=== PATIENT | female | born 1940 | race Caucasian/White ===

== ENCOUNTER → 2016-12-09 | Outpatient (CLI) | payer OTHER ==
[2016-12-09 13:49] LABS: ABSOLUTE BASOPHILS # (AUTO) 0.1 10^3/uL (0.0-0.2); ABSOLUTE EOSINOPHILS # (AUTO) 0.2 10^3/uL (0.0-0.6); ABSOLUTE LYMPHOCYTES (AUTO) 1.3 10^3/uL (0.5-4.7); ABSOLUTE MONOCYTES (AUTO) 0.6 10^3/uL (0.1-1.4); ABSOLUTE NEUT (AUTO) 6.2 10^3/uL (1.7-8.2); BASOPHILS % (AUTO) 0.6 % (0-2); EOSINOPHILS % (AUTO) 2.6 % (0-6); HEMATOCRIT 41.4 % (36.0-47.0); HEMOGLOBIN 13.2 g/dL (12.0-15.5); HGB HCT DIFFERENCE -1.8; LYMPHOCYTES % (AUTO) 15.7 % (13-45); MEAN CORPUSCULAR HEMOGLOBIN 29.4 pg (27.0-33.4); MEAN CORPUSCULAR HGB CONC 31.8 g/dL (32.0-36.0); MEAN CORPUSCULAR VOLUME 92 fl (80-97); MONOCYTES % (AUTO) 6.7 % (3-13); RED BLOOD COUNT 4.49 10^6/uL (3.72-5.28); RED CELL DISTRIBUTION WIDTH 16.7 % (11.5-14.0); SEGMENTED NEUTROPHILS % (AUTO) 74.4 % (42-78); WHITE BLOOD COUNT 8.4 10^3/uL (4.0-10.5)
[2016-12-09 13:54] LABS: ALANINE AMINOTRANSFERASE 21 U/L (9-52); ALBUMIN 3.9 g/dL (3.5-5.0); ALKALINE PHOSPHATASE 71 U/L (38-126); ANION GAP 15 (5-19); ASPARTATE AMINO TRANSFERASE 17 U/L (14-36); BILIRUBIN,DIRECT 0.3 mg/dL (0.0-0.4); BILIRUBIN,TOTAL 0.6 mg/dL (0.2-1.3); BLOOD UREA NITROGEN 27 mg/dL (7-20); C-REACTIVE PROTEIN 22.2 mg/L (<10.0); CALCIUM 9.4 mg/dL (8.4-10.2); CARBON DIOXIDE 23 mmol/L (22-30); CHLORIDE 103 mmol/L (98-107); CREATININE RESULT 0.74 mg/dL (0.52-1.25); GLUCOSE 71 mg/dL (75-110); POTASSIUM 4.9 mmol/L (3.6-5.0); SODIUM 140.5 mmol/L (137-145); TOTAL PROTEIN 7.1 g/dL (6.3-8.2)
[2016-12-09 14:40] LABS: ERYTHROCYTE SEDIMENTATION RATE 29 mm/hr (0-30)
== END ==
LOC: OD 12:36
PROVIDERS: ATTEND Nurse Practitioner Family
DX: L97.522 Non-pressure chronic ulcer of other part of left foot with fat layer exposed (principal)
CPT/HCPCS: 36415; 80053; 83036; 85025; 85652; 86140

== ENCOUNTER → 2017-01-13 | Outpatient (CLI) | payer OTHER ==
[2017-01-13 13:09] LABS: ABSOLUTE EOSINOPHILS # (AUTO) 0.2 10^3/uL (0.0-0.6); ABSOLUTE MONOCYTES (AUTO) 0.7 10^3/uL (0.1-1.4); ABSOLUTE NEUT (AUTO) 6.2 10^3/uL (1.7-8.2); BASOPHILS % (AUTO) 0.5 % (0-2); EOSINOPHILS % (AUTO) 2.1 % (0-6); HEMATOCRIT 41.4 % (36.0-47.0); HEMOGLOBIN 13.3 g/dL (12.0-15.5); HGB HCT DIFFERENCE -1.5; LYMPHOCYTES % (AUTO) 21.6 % (13-45); MEAN CORPUSCULAR HEMOGLOBIN 29.1 pg (27.0-33.4); MEAN CORPUSCULAR HGB CONC 32.2 g/dL (32.0-36.0); MEAN CORPUSCULAR VOLUME 90 fl (80-97); MONOCYTES % (AUTO) 7.7 % (3-13); RED BLOOD COUNT 4.58 10^6/uL (3.72-5.28); RED CELL DISTRIBUTION WIDTH 15.9 % (11.5-14.0); SEGMENTED NEUTROPHILS % (AUTO) 68.1 % (42-78); WHITE BLOOD COUNT 9.1 10^3/uL (4.0-10.5)
[2017-01-13 13:30] LABS: ALANINE AMINOTRANSFERASE 23 U/L (9-52); ALBUMIN 4.1 g/dL (3.5-5.0); ALKALINE PHOSPHATASE 67 U/L (38-126); ANION GAP 9 (5-19); ASPARTATE AMINO TRANSFERASE 17 U/L (14-36); BILIRUBIN,DIRECT 0.3 mg/dL (0.0-0.4); BILIRUBIN,TOTAL 0.5 mg/dL (0.2-1.3); BLOOD UREA NITROGEN 26 mg/dL (7-20); CALCIUM 9.7 mg/dL (8.4-10.2); CARBON DIOXIDE 26 mmol/L (22-30); CHLORIDE 102 mmol/L (98-107); GLUCOSE 76 mg/dL (75-110); POTASSIUM 5.2 mmol/L (3.6-5.0); SODIUM 137.2 mmol/L (137-145); TOTAL PROTEIN 7.5 g/dL (6.3-8.2)
[2017-01-13 13:51] LABS: ERYTHROCYTE SEDIMENTATION RATE 36 mm/hr (0-30)
--- NOTE | 2017-01-13 14:01 | RADIOLOGY REPORT (SQ) ---
EXAM DESCRIPTION: FOOT LEFT COMPLETE COMPLETED DATE/TIME: 01/13/2017 1:01 pm REASON FOR STUDY: TYPE 2 DIABETES MELLITUS WITH FOOT ULCER E11.621 TYPE 2 DIABETES MELLITUS WITH FO OT ULCER COMPARISON: 12/09/2016 NUMBER OF VIEWS: Three views. TECHNIQUE: AP, lateral and oblique radiographic images acquired of the left foot. LIMITATIONS: None. FINDINGS: MINERALIZATION: Osteopenia. BONES: No acute fracture or dislocation. No worrisome bone lesions. No evidence of osteomyelitis. JOINTS: Mild degenerative joint changes are present in the 1st metatarsal-phalangeal joint in the 1st interphalangeal joint SOFT TISSUES: No soft tissue swelling. No foreign body. OTHER: No other significant finding. IMPRESSION: No osteomyelitis is seen. Findings as described. TECHNICAL DOCUMENTATION: JOB ID: [id number] [employer]- All Rights Reserved
== END ==
LOC: OD 12:17
PROVIDERS: ATTEND Surgery
DX: E11.621 Type 2 diabetes mellitus with foot ulcer (principal); L97.529 Non-pressure chronic ulcer of other part of left foot with unspecified severity
CPT/HCPCS: 36415; 80053; 83036; 85025; 85652

== ENCOUNTER 2017-08-21 14:15 | Inpatient (IN) | payer MEDICARE, OTHER ==
--- NOTE | 2017-08-21 15:22 | RADIOLOGY REPORT (SQ) ---
EXAM DESCRIPTION: CT HEAD WITHOUT COMPLETED DATE/TIME: 08/21/2017 3:14 pm REASON FOR STUDY: fall/head injury/severe arthritis COMPARISON: None. TECHNIQUE: Axial images acquired through the brain without intravenous contrast. Images reviewed wi th bone, brain and subdural windows. Images stored on PACS. All CT scanners at this facility use dose modulation, iterative reconstruction, and/or weight based d osing when appropriate to reduce radiation dose to as low as reasonably achievable (ALARA). [facility]: Dose Right [facility]: CareDose [facility]: Dose Right [facility]: Teradose 4D [facility]: [employer] RADIATION DOSE: mGy. LIMITATIONS: None. FINDINGS: VENTRICLES: Prominent. CEREBRUM: No masses. No hemorrhage. No midline shift. Areas of low density in the white matter mos t likely due to chronic micro-vascular ischemic change. No evidence for acute infarction. CEREBELLUM: No masses. No hemorrhage. No alteration of density. No evidence for acute infarction. EXTRAAXIAL SPACES: Mild age-related involutional change. No fluid collections. No masses. ORBITS AND GLOBE: No intra- or extraconal masses. Normal contour of globe without masses. CALVARIUM: No fracture. PARANASAL SINUSES: No fluid or mucosal thickening. SOFT TISSUES: No mass or hematoma. OTHER: No other significant finding. IMPRESSION: No acute findings. EVIDENCE OF ACUTE STROKE: NO. TECHNICAL DOCUMENTATION: JOB ID: [id number] Quality ID # [id number]: Final reports with documentation of one or more dose reduction techniques (e.g., Au tomated exposure control, adjustment of the mA and/or kV according to patient size, use of iterative reconstruction technique) 2010 [employer]- All Rights Reserved
--- NOTE | 2017-08-21 15:24 | RADIOLOGY REPORT (SQ) ---
EXAM DESCRIPTION: HIP LEFT AP/LATERAL COMPLETED DATE/TIME: 08/21/2017 3:14 pm REASON FOR STUDY: fall COMPARISON: None. NUMBER OF VIEWS: Two views. TECHNIQUE: AP pelvis and additional frog-leg view of the left hip. LIMITATIONS: None. FINDINGS: MINERALIZATION: Osteopenia. LEFT HIP: Minimally displaced left intertrochanteric femoral neck fracture. RIGHT HIP: Status post internal fixation. No acute osseous abnormality. No hardware complication. PUBIS AND ISCHIUM: No fracture. PELVIS: No fracture. SACRUM: No fracture or dislocation. No worrisome bone lesions. LOWER LUMBAR SPINE: No fracture or dislocation. No worrisome bone lesions. No significant disc disea se. SOFT TISSUES: No findings. OTHER: No other significant finding. IMPRESSION: LEFT INTERTROCHANTERIC FEMORAL NECK FRACTURE. STATUS POST INTERNAL FIXATION RIGHT HIP WITHOUT COMPLICATION. TECHNICAL DOCUMENTATION: JOB ID: [id number] [employer]- All Rights Reserved
--- NOTE | 2017-08-21 15:28 | RADIOLOGY REPORT (SQ) ---
EXAM DESCRIPTION: CT CERVICAL SPINE WITHOUT COMPLETED DATE/TIME: 08/21/2017 3:19 pm REASON FOR STUDY: fall/head injury/severe arthritis COMPARISON: None. TECHNIQUE: Axial images acquired through the cervical spine without intravenous contrast. Images re viewed with lung, soft tissue and bone windows. Reconstructed coronal and sagittal MPR images review ed. Images stored on PACS. All CT scanners at this facility use dose modulation, iterative reconstruction, and/or weight based d osing when appropriate to reduce radiation dose to as low as reasonably achievable (ALARA). [facility]: Dose Right [facility]: CareDose [facility]: Dose Right [facility]: Teradose 4D [facility]: [employer] RADIATION DOSE: CT Rad equipment meets quality standard of care and radiation dose reduction techniq ues were employed. CTDIvol: 17.5 mGy. DLP: 314 mGy-cm. mGy. LIMITATIONS: None. FINDINGS: ALIGNMENT: Grade 1 anterolisthesis C4 relative to C5. MINERALIZATION: Normal. VERTEBRAL BODIES: No fractures or dislocation. DISCS: Multilevel disc space narrowing with osteophytes. FACETS, LATERAL MASSES, POSTERIOR ELEMENTS: Facet arthropathy. No fractures. No dislocation. No ac [place] findings. HARDWARE: None in the spine. VISUALIZED RIBS: No fractures. LUNG APICES AND SOFT TISSUES: No significant or acute findings. OTHER: No other significant finding. IMPRESSION: CHRONIC DEGENERATIVE CHANGES. NO ACUTE FINDINGS. TECHNICAL DOCUMENTATION: JOB ID: [id number] Quality ID # [id number]: Final reports with documentation of one or more dose reduction techniques (e.g., Au tomated exposure control, adjustment of the mA and/or kV according to patient size, use of iterative reconstruction technique) 2010 [employer]- All Rights Reserved
--- NOTE | 2017-08-21 15:59 | ER Document Report ---
ED General - General Chief Complaint: Fall Injury Stated Complaint: FALL/LEFT HIP PAIN Time Seen by Provider: 08/21/17 14:36 TRAVEL OUTSIDE OF THE [place] IN LAST 30 DAYS: No - HPI Patient complains to provider of: Fall Onset: Just prior to arrival Onset/Duration: Sudden Associated symptoms: None Similar symptoms previously: Yes Recently seen / treated by doctor: Yes - Hip fracture in 2015 Notes: She was at home alone when she tripped and fell hitting the back of her head. She states she could not get up but she did have a forward pocket so she called 9 1. She is complaining currently of left hip pain. She denies LOC she is on anticoagulation for strokes in the past - Related Data Allergies/Adverse Reactions: No Known Allergies Allergy (Unverified 10/13/14 11:42) Past Medical History - General Information source: Patient, Relative - Social History Smoking Status: Never Smoker Chew tobacco use (# tins/day): No Drug Abuse: None Lives with: Alone Family History: Reviewed & Not Pertinent Patient has suicidal ideation: No Patient has homicidal ideation: No - Past Medical History Cardiac Medical History: Reports: Hx Hypertension - CONTROLLED/medicated Denies: Hx Heart Attack Pulmonary Medical History: Denies: Hx Asthma Neurological Medical History: Denies: Hx Cerebrovascular Accident, Hx Seizures Endocrine Medical History: Reports: Hx Diabetes Mellitus Type 2 Renal/ Medical History: Reports: None. Denies: Hx Peritoneal Dialysis Malignancy Medical History: Reports: None GI Medical History: Reports: None. Denies: Hx Hepatitis, Hx Hiatal Hernia, Hx Ulcer Musculoskeltal Medical History: Reports Hx Arthritis - Severe rheumatoid arthritis Skin Medical History: Reports None Psychiatric Medical History: Reports: None, Hx Depression Other: Fall in 2014 with right hip fracture and repair Infectious Medical History: Denies: Hx Hepatitis Past Surgical History: Reports: Hx Orthopedic Surgery - right knee replacement. Denies: Hx Hysterectomy, Hx Mastectomy, Hx Open Heart Surgery, Hx Pacemaker - Immunizations Hx Diphtheria, Pertussis, Tetanus Vaccination: No Review of Systems - Review of Systems Constitutional: No symptoms reported EENT: No symptoms reported Cardiovascular: No symptoms reported Respiratory: No symptoms reported Gastrointestinal: No symptoms reported Genitourinary: No symptoms reported Female Genitourinary: No symptoms reported Musculoskeletal: Joint pain Skin: No symptoms reported Hematologic/Lymphatic: No symptoms reported Neurological/Psychological: No symptoms reported Physical Exam - Vital signs Vitals: Resp 16 08/21/17 14:20 - Notes Notes: PHYSICAL EXAMINATION: GENERAL: Well-appearing, well-nourished mild distress secondary to left hip pain. HEAD: Patient has scalp hematoma to right parietal area. EYES: Pupils equal round and reactive to light, extraocular movements intact, conjunctiva are normal. ENT: Nares patent, oropharynx clear without exudates. Moist mucous membranes. NECK: Normal range of motion, supple without lymphadenopathy LUNGS: Breath sounds clear to auscultation bilaterally and equal. No wheezes rales or rhonchi. HEART: Regular rate and rhythm without murmurs ABDOMEN: Soft, nontender, nondistended abdomen. No guarding, no rebound. No masses appreciated. Female : deferred Musculoskeletal: Left hip is swollen tender with marked deformity. NEUROLOGICAL: Cranial nerves grossly intact. Normal speech. Normal sensory. PSYCH: Normal mood, normal affect. SKIN: Warm, Dry, normal turgor, no rashes or lesions noted. Course - Re-evaluation Re-evalutation: 08/21/17 16:06 I did talk to Dr. Jensen as Dr. Good Albarado greater than patient's right hip and they are in the same group. Dr. Jensen I decided to admit the patient to the hospitalist group and he will consult. Patient continues to refuse pain medication. I did offer when she initially arrived and currently and she still does not want any pain meds. Blood work, chest x-ray, EKG are all ordered and are being done. 08/21/17 17:[address] Valdes and pt. will be admitted. - Vital Signs Vital signs: Temp Pulse Resp BP Pulse Ox 98.5 F 77 18 163/56 H 96 08/21/17 14:37 08/21/17 14:37 08/21/17 14:37 08/21/17 14:37 08/21/17 14:37 - Laboratory Result Diagrams: 08/21/17 16:46 08/21/17 16:46 Laboratory results interpreted by me: 08/21/17 16:46 RDW 14.7 H Seg Neutrophils % 81.2 H Lymphocytes % 10.5 L Absolute Neutrophils 8.4 H - Diagnostic Test Radiology reviewed: Image reviewed, Reports reviewed Radiology results interpreted by me: 08/21/17 19:33 left Intratrochanteric hip fracture 08/21/17 19:34 CT of the head and C-spine were without any acute findings. Chest x-ray also did not show any acute findings. - EKG Interpretation by Me EKG shows normal: Sinus rhythm - 70 Rate: Normal - Nonspecific ST-T wave changes When compared to previous EKG there are: No significant change Discharge - Discharge Clinical Impression: Intertrochanteric fracture of left hip Qualifiers: Encounter type: initial encounter Fracture type: closed Fracture alignment: nondisplaced Qualified Code(s): S72.145A - Nondisplaced intertrochanteric fracture of left femur, initial encounter for closed fracture Condition: Stable Disposition: ADMITTED INPATIENT Admitting Provider: Hospitalist - Dr. Valdes Unit Admitted: Surgical Floor
--- NOTE | 2017-08-21 16:39 | RADIOLOGY REPORT (SQ) ---
EXAM DESCRIPTION: CHEST SINGLE VIEW COMPLETED DATE/TIME: 08/21/2017 4:17 pm REASON FOR STUDY: preop COMPARISON: 10/13/2014 EXAM PARAMETERS: NUMBER OF VIEWS: One view. TECHNIQUE: Single frontal radiographic view of the chest acquired. RADIATION DOSE: NA LIMITATIONS: None. FINDINGS: LUNGS AND PLEURA: No new opacities, masses or pneumothorax. No pleural effusion. MEDIASTINUM AND HILAR STRUCTURES: No masses. Contour normal. HEART AND VASCULAR STRUCTURES: Heart stable in size. Normal vasculature. BONES: No acute findings. HARDWARE: None in the chest. OTHER: No other significant finding. IMPRESSION: NO ACUTE RADIOGRAPHIC FINDING IN THE CHEST. NO SIGNIFICANT CHANGE FROM PRIOR STUDY. TECHNICAL DOCUMENTATION: JOB ID: [id number] [employer]- All Rights Reserved
[2017-08-21] MEDS ORDERED: MORPHINE SULFATE 10 MG/ML INJ IV ONE (16:53)
[2017-08-21 16:55] LABS: ABSOLUTE EOSINOPHILS # (AUTO) 0.1 10^3/uL (0.0-0.6); ABSOLUTE LYMPHOCYTES (AUTO) 1.1 10^3/uL (0.5-4.7); ABSOLUTE MONOCYTES (AUTO) 0.7 10^3/uL (0.1-1.4); ABSOLUTE NEUT (AUTO) 8.4 10^3/uL (1.7-8.2); BASOPHILS % (AUTO) 0.5 % (0-2); EOSINOPHILS % (AUTO) 1.4 % (0-6); HEMATOCRIT 39.9 % (36.0-47.0); HEMOGLOBIN 13.5 g/dL (12.0-15.5); LYMPHOCYTES % (AUTO) 10.5 % (13-45); MEAN CORPUSCULAR HEMOGLOBIN 30.7 pg (27.0-33.4); MEAN CORPUSCULAR HGB CONC 33.8 g/dL (32.0-36.0); MEAN CORPUSCULAR VOLUME 91 fl (80-97); MONOCYTES % (AUTO) 6.4 % (3-13); PLATELET COUNT 227 10^3/uL (150-450); RED BLOOD COUNT 4.39 10^6/uL (3.72-5.28); RED CELL DISTRIBUTION WIDTH 14.7 % (11.5-14.0); SEGMENTED NEUTROPHILS % (AUTO) 81.2 % (42-78); TOTAL CELLS COUNTED % (AUTO) 100 %; WHITE BLOOD COUNT 10.4 10^3/uL (4.0-10.5)
[2017-08-21 17:03] LABS: INTERNATIONAL RATION (INR) 0.93; PROTHROMBIN TIME 13.1 SEC (11.4-15.4)
[2017-08-21 17:04] LABS: PARTIAL THROMBOPLASTIN TIME 30.6 SEC (23.5-35.8)
--- NOTE | 2017-08-21 17:20 | EKG REPORT ---
SEVERITY:- ABNORMAL ECG - SINUS RHYTHM ABNORMAL T, CONSIDER ISCHEMIA, LATERAL LEADS : Confirmed by: Abdelrahman Cantu 21-Aug-2017 17:18:58
[2017-08-21 17:22] LABS: ALANINE AMINOTRANSFERASE 25 U/L (9-52); ALBUMIN 4.1 g/dL (3.5-5.0); ALKALINE PHOSPHATASE 69 U/L (38-126); ANION GAP 12 (5-19); ASPARTATE AMINO TRANSFERASE 19 U/L (14-36); BILIRUBIN,DIRECT 0.2 mg/dL (0.0-0.4); BILIRUBIN,TOTAL 0.4 mg/dL (0.2-1.3); BLOOD UREA NITROGEN 18 mg/dL (7-20); CALCIUM 9.8 mg/dL (8.4-10.2); CARBON DIOXIDE 24 mmol/L (22-30); CHLORIDE 104 mmol/L (98-107); GLUCOSE 83 mg/dL (75-110); POTASSIUM 4.4 mmol/L (3.6-5.0); SODIUM 139.8 mmol/L (137-145); TOTAL PROTEIN 6.7 g/dL (6.3-8.2)
[2017-08-21] MEDS ORDERED: OXYCODONE-ACETAMINOPHEN 5-325 MG TABLET PO PRN (17:33)
[2017-08-21] MEDS ORDERED: ACETAMINOPHEN 325 MG TABLET PO PRN (17:33)
[2017-08-21] MEDS ORDERED: DEXTROSE 40% GEL 15 GM TUBE PO PRN ×2 (18:28)
[2017-08-21] MEDS ORDERED: HYDRALAZINE HCL INJ/PF 20 MG/1 ML SDV IV PRN (18:28)
[2017-08-21] MEDS ORDERED: GLUCAGON,HUMAN RECOMB 1 MG INJ IM PRN (18:28)
[2017-08-21] MEDS ORDERED: DEXTROSE 50%-WATER 25 GM/50 ML DISP.SYRIN IV PRN ×2 (18:28)
--- NOTE | 2017-08-21 18:41 | PDOC H&P ---
History of Present Illness Admission Date/PCP: 08/21/17 17:54 Patient complains of: Pain to left hip tonight History of Present Illness: WENDI ESCOBAR is a 76 year old female arrived to ED via rescue squad complaining of left hip pain. Patient states that she was in her kitchen when she fell. She denies any loss of consciousness, weakness or dizziness. She suffers from rheumatoid arthritis and takes methotrexate on a regular basis. Patient denies history of stroke or being on any anticoagulants. She does admit history of diabetes. On evaluation in emergency room x-ray was significant for a left intertrochanteric femoral neck fracture. ED physician contacted Dr. Deal who recommended for her to contact the hospitalist service for admission. Past Medical History Cardiac Medical History: Reports: Hypertension - CONTROLLED/medicated Denies: Myocardial Infarction Pulmonary Medical History: Denies: Asthma EENT Medical History: Reports: None Neurological Medical History: Denies: Hemorrhagic CVA, Ischemic CVA, Seizures Endocrine Medical History: Reports: Diabetes Mellitus Type 2 Renal/ Medical History: Reports: None Malignancy Medical History: Reports: None GI Medical History: Reports: None Denies: Hepatitis, Hiatal Hernia Musculoskeltal Medical History: Reports: Arthritis - Severe rheumatoid arthritis Skin Medical History: Reports: None Psychiatric Medical History: Reports: None, Depression Traumatic Medical History: Reports: None Hematology: Reports: 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 Denies: Sickle Cell Disease Infectious Medical History: Reports: None Past Surgical History Past Surgical History: Reports: Orthopedic Surgery - right knee replacement Denies: Amputation, Hysterectomy, Mastectomy, Pacemaker Social History Lives with: Alone Smoking Status: Never Smoker Frequency of Alcohol Use: None Hx Recreational Drug Use: No Drugs: None Hx Prescription Drug Abuse: No - Advance Directive Resuscitation Status: Full Code Family History Family History: Hypertension, Malignancy Parental Family History Reviewed: Yes Children Family History Reviewed: Yes Sibling(s) Family History Reviewed.: Yes Medication/Allergy Home Medications: Citalopram Hydrobromide [Celexa 20 mg Tablet] 20 mg PO DAILY 12/28/11 Folic Acid 1 mg PO DAILY 12/28/11 Lisinopril [Prinivil 10 mg Tablet] 10 mg PO DAILY 12/28/11 Metformin HCl [Glucophage 500 mg Tablet] 500 mg PO DAILY 12/28/11 Methotrexate Sodium [Methotrexate] 4 tab PO .QWK 12/28/11 Multivitamin [Vitamin A Day] 1 each PO DAILY 12/28/11 Gabapentin [Neurontin 100 mg Capsule] 2 tab PO Q12 12/25/13 Docusate Sodium [Colace 100 mg Capsule] 100 mg PO BID #60 capsule 10/17/14 Oxycodone HCl [Oxy-Ir 5 mg Tablet] 5 mg PO Q4HP PRN #30 tablet 10/17/14 Polyethylene Glycol 3350 [Miralax Powder 17 gm/Packet] 17 gm PO DAILY #30 powd.pack 10/17/14 Rivaroxaban [Xarelto 10 mg Tablet] 10 mg PO QHS #30 tablet 10/17/14 Allergies/Adverse Reactions: No Known Allergies Allergy (Unverified 10/13/14 11:42) Review of Systems Constitutional: ABSENT: chills, fatigue, headache(s), weakness Eyes: ABSENT: visual disturbances Ears: ABSENT: hearing changes Nose, Mouth, and Throat: ABSENT: mouth pain, sore throat Cardiovascular: ABSENT: chest pain, dyspnea on exertion, edema, palpitations Respiratory: ABSENT: dyspnea Gastrointestinal: ABSENT: abdominal pain, nausea, vomiting Genitourinary: ABSENT: difficulty urinating, dysuria Musculoskeletal: PRESENT: other - left hip pain Neurological: ABSENT: dizziness, weakness Psychiatric: PRESENT: depression Endocrine: ABSENT: polydipsia, polyphagia Hematologic/Lymphatic: ABSENT: lymphadenopathy Physical Exam Vital Signs: Temp Pulse Resp BP Pulse Ox 98.5 F 77 18 163/56 H 96 08/21/17 14:37 08/21/17 14:37 08/21/17 14:37 08/21/17 14:37 08/21/17 14:37 General appearance: PRESENT: cooperative, mild distress, well-developed, well- nourished Head exam: PRESENT: atraumatic, normocephalic Eye exam: PRESENT: conjunctiva pink, EOMI, PERRLA Ear exam: PRESENT: normal external ear exam Mouth exam: PRESENT: moist, neck supple Neck exam: PRESENT: full ROM, tenderness. ABSENT: JVD, lymphadenopathy, thyromegaly Respiratory exam: PRESENT: clear to auscultation gertrudis Cardiovascular exam: PRESENT: RRR. ABSENT: diastolic murmur, systolic murmur Vascular exam: PRESENT: normal capillary refill GI/Abdominal exam: PRESENT: guarding, normal bowel sounds, soft. ABSENT: tenderness Extremities exam: PRESENT: joint swelling, +1 edema Neurological exam: PRESENT: alert, awake, oriented to person, oriented to place , oriented to time Psychiatric exam: PRESENT: appropriate affect, normal mood Skin exam: PRESENT: intact, normal color Results Impressions: Hip X-Ray 08/21/17 14:22 IMPRESSION: LEFT INTERTROCHANTERIC FEMORAL NECK FRACTURE. STATUS POST INTERNAL FIXATION RIGHT HIP WITHOUT COMPLICATION. Cervical Spine CT 08/21/17 14:40 IMPRESSION: CHRONIC DEGENERATIVE CHANGES. NO ACUTE FINDINGS. Head CT 08/21/17 14:40 IMPRESSION: No acute findings. EVIDENCE OF ACUTE STROKE: NO. Chest X-Ray 08/21/17 15:48 IMPRESSION: NO ACUTE RADIOGRAPHIC FINDING IN THE CHEST. NO SIGNIFICANT CHANGE FROM PRIOR STUDY. Assessment & Plan - Diagnosis (1) Diabetes Qualifiers: Diabetes mellitus type: type 2 Diabetes mellitus complication status: with neurologic complications Diabetes mellitus complication detail: with unspecified neuropathy Diabetes mellitus prison insulin use: without terminal makeup operator use Qualified Code(s): E11.40 - Type 2 diabetes mellitus with diabetic neuropathy, unspecified Is this a current diagnosis for this admission?: Yes Plan: To order basic glucose before meals and at bedtime and place on Humalog sliding scale (2) Rheumatoid arthritis Qualifiers: Rheumatoid arthritis location: hand Rheumatoid factor presence: unspecified presence Laterality: bilateral Qualified Code(s): M06.9 - Rheumatoid arthritis, unspecified Is this a current diagnosis for this admission?: Yes Plan: Will stop methotrexate as it may impair healing. Consider watching for flare of her rheumatoid arthritis. (3) HTN (hypertension) Qualifiers: Hypertension type: essential hypertension Qualified Code(s): I10 - Essential (primary) hypertension Is this a current diagnosis for this admission?: Yes Plan: According to the chart patient does have history of hypertension at the present time and likely is on control because of pain. Will order hydralazine IV for systolic blood pressure higher or equal to 160 or diastolic blood pressure higher or equal to 110 (4) Intertrochanteric fracture of left hip Qualifiers: Encounter type: initial encounter Fracture type: closed Fracture alignment: nondisplaced Qualified Code(s): S72.145A - Nondisplaced intertrochanteric fracture of left femur, initial encounter for closed fracture Is this a current diagnosis for this admission?: Yes Plan: Major concern is that patient is on chronic use of methotrexate therefore will impair healing. As this was an acute episode she will benefit from surgical repair. Patient is high risk for surgery but the pros outweigh the cons (5) Immunosuppressed status Is this a current diagnosis for this admission?: Yes Plan: Patient getting methotrexate chronically for rheumatoid arthritis rendering patient immunosuppressant at high risk for infection and poor healing - Time Time Spent: 50 to 70 Minutes Medications reviewed and adjusted accordingly: Yes Anticipated discharge: Acute Rehab Within: within 72 hours - Inpatient Certification Based on my medical assessment, after consideration of the patient's comorbidities, presenting symptoms, or acuity I expect that the services needed warrant INPATIENT care.: Yes I certify that my determination is in accordance with my understanding of Medicare's requirements for reasonable and necessary INPATIENT services [42 CFR 412.3e].: Yes Medical Necessity: Need for Pain Control, Need for Surgery
[2017-08-21] MEDS: NORMAL SALINE 1000 ML 1,000 ML IV PRN (18:55)
[2017-08-22] MEDS: MORPHINE SULFATE 10 MG/ML INJ IV PRN (06:07)
[2017-08-22 06:23] LABS: ABSOLUTE EOSINOPHILS # (AUTO) 0.3 10^3/uL (0.0-0.6); ABSOLUTE LYMPHOCYTES (AUTO) 1.1 10^3/uL (0.5-4.7); ABSOLUTE MONOCYTES (AUTO) 0.6 10^3/uL (0.1-1.4); ABSOLUTE NEUT (AUTO) 5.4 10^3/uL (1.7-8.2); BASOPHILS % (AUTO) 0.6 % (0-2); EOSINOPHILS % (AUTO) 3.6 % (0-6); HEMOGLOBIN 11.9 g/dL (12.0-15.5); LYMPHOCYTES % (AUTO) 15.5 % (13-45); MEAN CORPUSCULAR HEMOGLOBIN 30.5 pg (27.0-33.4); MEAN CORPUSCULAR HGB CONC 33.9 g/dL (32.0-36.0); MEAN CORPUSCULAR VOLUME 90 fl (80-97); MONOCYTES % (AUTO) 7.8 % (3-13); PLATELET COUNT 191 10^3/uL (150-450); RED CELL DISTRIBUTION WIDTH 14.5 % (11.5-14.0); SEGMENTED NEUTROPHILS % (AUTO) 72.5 % (42-78); TOTAL CELLS COUNTED % (AUTO) 100 %; WHITE BLOOD COUNT 7.4 10^3/uL (4.0-10.5)
[2017-08-22 06:36] LABS: ANION GAP 9 (5-19); BLOOD UREA NITROGEN 16 mg/dL (7-20); CALCIUM 8.8 mg/dL (8.4-10.2); CARBON DIOXIDE 24 mmol/L (22-30); CHLORIDE 105 mmol/L (98-107); GLUCOSE 82 mg/dL (75-110); MAGNESIUM 1.6 mg/dL (1.6-2.3); POTASSIUM 4.1 mmol/L (3.6-5.0); SODIUM 137.8 mmol/L (137-145)
--- NOTE | 2017-08-22 06:50 | PDOC CONSULTATION ---
Consultation Consult Date: 08/22/17 Consult reason:: Left hip fracture History of Present Illness Admission Date/PCP: 08/21/17 17:54 History of Present Illness: The patient is a 76-year-old white female with multiple comorbidities who fell at home and sustained a left hip injury. The patient was unable to walk. She is largely a household ambulator at this point. She was brought to the emergency room where a left intratrochanteric femur fracture was identified. Orthopedics is consulted for fracture management. Past Medical History Cardiac Medical History: Reports: Hypertension - CONTROLLED/medicated Denies: Myocardial Infarction Pulmonary Medical History: Denies: Asthma EENT Medical History: Reports: None Neurological Medical History: Denies: Hemorrhagic CVA, Ischemic CVA, Seizures Endocrine Medical History: Reports: Diabetes Mellitus Type 2 Renal/ Medical History: Reports: None Malignancy Medical History: Reports: None GI Medical History: Reports: None Denies: Hepatitis, Hiatal Hernia Musculoskeltal Medical History: Reports: Arthritis - Severe rheumatoid arthritis Skin Medical History: Reports: None Psychiatric Medical History: Reports: None, Depression Traumatic Medical History: Reports: None Hematology: Reports: 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 Denies: Sickle Cell Disease Infectious Medical History: Reports: None Past Surgical History Past Surgical History: Reports: Orthopedic Surgery - right knee replacement, open reduction internal fixation of right hip fract Denies: Amputation, Hysterectomy, Mastectomy, Pacemaker Social History Lives with: Alone Smoking Status: Never Smoker Frequency of Alcohol Use: None Hx Recreational Drug Use: No Drugs: None Hx Prescription Drug Abuse: No - Advance Directive Resuscitation Status: Full Code Family History Family History: Reviewed & Not Pertinent Parental Family History Reviewed: No Children Family History Reviewed: No Sibling(s) Family History Reviewed.: No Medication/Allergy Allergies/Adverse Reactions: No Known Allergies Allergy (Unverified 10/13/14 11:42) Review of Systems All systems: as per H Physical Exam Vital Signs: Temp Pulse Resp BP Pulse Ox 36.9 C 77 18 114/81 95 08/21/17 14:37 08/21/17 14:37 08/22/17 02:09 08/22/17 02:09 08/22/17 02:09 Intake & Output 08/20/17 08/21/17 08/22/17 06:59 06:59 06:59 Weight 68.039 kg Physical Exam: Patient is an elderly white female lying on emergency room gurripley. She is in minimal distress. She is alert oriented and conversant. General appearance: PRESENT: no acute distress Head exam: PRESENT: normocephalic Respiratory exam: PRESENT: unlabored Cardiovascular exam: PRESENT: RRR Pulses: PRESENT: +1 pedal pulses bilateral Vascular exam: PRESENT: normal capillary refill GI/Abdominal exam: PRESENT: soft Rectal exam: PRESENT: deferred Extremities exam: PRESENT: other - Left lower extremity shortened and externally rotated. Distal neurovascular examination is intact. Neurological exam: PRESENT: alert, awake, oriented to person, oriented to place , oriented to time, oriented to situation. ABSENT: motor sensory deficit Psychiatric exam: PRESENT: appropriate affect, normal mood. ABSENT: homicidal ideation, suicidal ideation Skin exam: PRESENT: dry, intact, warm. ABSENT: cyanosis, rash Results Laboratory Results: 08/22/17 06:06 08/22/17 06:06 08/22/17 08/22/17 06:06 06:06 WBC 7.4 RBC 3.90 Hgb 11.9 L Hct 35.0 L MCV 90 MCH 30.5 MCHC 33.9 RDW 14.5 H Plt Count 191 Seg Neutrophils % 72.5 Lymphocytes % 15.5 Monocytes % 7.8 Eosinophils % 3.6 Basophils % 0.6 Absolute Neutrophils 5.4 Absolute Lymphocytes 1.1 Absolute Monocytes 0.6 Absolute Eosinophils 0.3 Absolute Basophils 0.0 Sodium 137.8 Potassium 4.1 Chloride 105 Carbon Dioxide 24 Anion Gap 9 BUN 16 Creatinine 0.62 Est GFR ( Amer) > 60 Est GFR (Non-Af Amer) > 60 Glucose 82 Calcium 8.8 Magnesium 1.6 Impressions: Hip X-Ray 08/21/17 14:22 IMPRESSION: LEFT INTERTROCHANTERIC FEMORAL NECK FRACTURE. STATUS POST INTERNAL FIXATION RIGHT HIP WITHOUT COMPLICATION. Cervical Spine CT 08/21/17 14:40 IMPRESSION: CHRONIC DEGENERATIVE CHANGES. NO ACUTE FINDINGS. Head CT 08/21/17 14:40 IMPRESSION: No acute findings. EVIDENCE OF ACUTE STROKE: NO. Chest X-Ray 08/21/17 15:48 IMPRESSION: NO ACUTE RADIOGRAPHIC FINDING IN THE CHEST. NO SIGNIFICANT CHANGE FROM PRIOR STUDY. Status: Imported from PACS Assessment & Plan - Diagnosis (1) Intertrochanteric fracture of left hip Qualifiers: Encounter type: initial encounter Fracture type: closed Fracture alignment: nondisplaced Qualified Code(s): S72.145A - Nondisplaced intertrochanteric fracture of left femur, initial encounter for closed fracture Is this a current diagnosis for this admission?: Yes Plan: 76-year-old white female with multiple comorbidities now with a left intratrochanteric femur fracture. Patient will be best served with an open reduction internal fixation under spinal anesthetic which will involve approximately 30 minutes and 100 cc blood loss. Tentative plan to do this tomorrow pending or availability and medical clearance. - Time Time Spent: 50 to 70 Minutes Anticipated discharge: SNF Within: within 72 hours
[2017-08-22] MEDS: OXYCODONE-ACETAMINOPHEN 5-325 MG TABLET PO PRN ×2 (08:51→20:44)
[2017-08-22] MEDS: NORMAL SALINE 1000 ML 1,000 ML IV PRN ×2 (08:52→20:43)
[2017-08-22] MEDS ORDERED: ZOLPIDEM TARTRATE 5 MG TABLET PO PRN (10:59)
--- NOTE | 2017-08-22 12:54 | PDOC PROGRESS REPORT ---
Subjective Progress Note for:: 08/22/17 Subjective:: Patient refers that pain is better with meds. Review of systems All organ systems evaluated and negative except in subjective All laboratories and significant laboratories had been reviewed. Reason For Visit: LEFT HIP FRACTURE,CHRONIC ANTICOAGULATION Physical Exam Vital Signs: Temp Pulse Resp BP Pulse Ox 98.5 F 77 18 114/81 95 08/21/17 14:37 08/21/17 14:37 08/22/17 02:09 08/22/17 02:09 08/22/17 02:09 Intake & Output 08/21/17 08/22/17 08/23/17 06:59 06:59 06:59 Weight 68.039 kg General appearance: PRESENT: no acute distress, cooperative, well-developed, well-nourished Head exam: PRESENT: atraumatic, normocephalic Eye exam: PRESENT: conjunctiva pink, EOMI, PERRLA Ear exam: PRESENT: normal external ear exam, TM's normal bilaterally Mouth exam: PRESENT: moist, neck supple Neck exam: PRESENT: full ROM, tenderness. ABSENT: JVD, lymphadenopathy, thyromegaly Respiratory exam: PRESENT: clear to auscultation gertrudis Cardiovascular exam: PRESENT: RRR. ABSENT: diastolic murmur, systolic murmur Vascular exam: PRESENT: normal capillary refill GI/Abdominal exam: PRESENT: normal bowel sounds, soft. ABSENT: guarding, tenderness Extremities exam: PRESENT: joint swelling, pedal edema, other - ulnar deviation of fingers in hands Musculoskeletal exam: PRESENT: full ROM Neurological exam: PRESENT: alert, oriented to person, oriented to place, oriented to time Psychiatric exam: PRESENT: appropriate affect, normal mood Skin exam: PRESENT: intact, normal color Results Laboratory Results: 08/22/17 06:06 08/22/17 06:06 08/22/17 08/22/17 06:06 06:06 WBC 7.4 RBC 3.90 Hgb 11.9 L Hct 35.0 L MCV 90 MCH 30.5 MCHC 33.9 RDW 14.5 H Plt Count 191 Seg Neutrophils % 72.5 Lymphocytes % 15.5 Monocytes % 7.8 Eosinophils % 3.6 Basophils % 0.6 Absolute Neutrophils 5.4 Absolute Lymphocytes 1.1 Absolute Monocytes 0.6 Absolute Eosinophils 0.3 Absolute Basophils 0.0 Sodium 137.8 Potassium 4.1 Chloride 105 Carbon Dioxide 24 Anion Gap 9 BUN 16 Creatinine 0.62 Est GFR ( Amer) > 60 Est GFR (Non-Af Amer) > 60 Glucose 82 Calcium 8.8 Magnesium 1.6 Impressions: Hip X-Ray 08/21/17 14:22 IMPRESSION: LEFT INTERTROCHANTERIC FEMORAL NECK FRACTURE. STATUS POST INTERNAL FIXATION RIGHT HIP WITHOUT COMPLICATION. Cervical Spine CT 08/21/17 14:40 IMPRESSION: CHRONIC DEGENERATIVE CHANGES. NO ACUTE FINDINGS. Head CT 08/21/17 14:40 IMPRESSION: No acute findings. EVIDENCE OF ACUTE STROKE: NO. Chest X-Ray 08/21/17 15:48 IMPRESSION: NO ACUTE RADIOGRAPHIC FINDING IN THE CHEST. NO SIGNIFICANT CHANGE FROM PRIOR STUDY. Assessment & Plan - Diagnosis (1) Diabetes Qualifiers: Diabetes mellitus type: type 2 Diabetes mellitus complication status: with neurologic complications Diabetes mellitus complication detail: with unspecified neuropathy Diabetes mellitus stablehand insulin use: without custodial use Qualified Code(s): E11.40 - Type 2 diabetes mellitus with diabetic neuropathy, unspecified Is this a current diagnosis for this admission?: Yes Plan: Continue checking glucose before meals and at bedtime and Humalog sliding scale (2) Rheumatoid arthritis Qualifiers: Rheumatoid arthritis location: hand Rheumatoid factor presence: unspecified presence Laterality: bilateral Qualified Code(s): M06.9 - Rheumatoid arthritis, unspecified Is this a current diagnosis for this admission?: Yes Plan: Will stop methotrexate as it may impair healing. Consider watching for flare of her rheumatoid arthritis. (3) HTN (hypertension) Qualifiers: Hypertension type: essential hypertension Qualified Code(s): I10 - Essential (primary) hypertension Is this a current diagnosis for this admission?: Yes Plan: Improved with pain management (4) Intertrochanteric fracture of left hip Qualifiers: Encounter type: initial encounter Fracture type: closed Fracture alignment: nondisplaced Qualified Code(s): S72.145A - Nondisplaced intertrochanteric fracture of left femur, initial encounter for closed fracture Is this a current diagnosis for this admission?: Yes Plan: Major concern is that patient is on chronic use of methotrexate therefore will impair healing. Under usual circumstances for planned surgery is reasonable to wait 6 weeks to clear methotrexate from the body. However since this is an acute episode she will benefit from surgical repair. Patient is high risk for surgery but the pros outweigh the cons. To consult cardiology for preop clearance (5) Immunosuppressed status Is this a current diagnosis for this admission?: Yes Plan: Patient getting methotrexate chronically for rheumatoid arthritis rendering patient immunosuppressant at high risk for infection and poor healing - Time Time Spent with patient: 15-24 minutes Medications reviewed and adjusted accordingly: Yes Anticipated discharge: SNF Within: within 72 hours - Inpatient Certification Based on my medical assessment, after consideration of the patient's comorbidities, presenting symptoms, or acuity I expect that the services needed warrant INPATIENT care.: Yes I certify that my determination is in accordance with my understanding of Medicare's requirements for reasonable and necessary INPATIENT services [42 CFR 412.3e].: Yes Medical Necessity: Need for Pain Control, Need for Surgery
--- NOTE | 2017-08-22 17:59 | XCELERA REPORT ---
[address] [address] Transthoracic Echocardiogram Report Name: WENDI ESCOBRA Age: 76 yrs Gender: Female : 1940 Patient Status: Inpatient Patient Location: [address] [place] [address] Study Date: 08/22/2017 01:21 PM Height: 64 in Weight: 150 lb BSA: 1.7 m2 Procedure: A two-dimensional transthoracic echocardiogram with color flow and Doppler was performed. The study was technically difficult with many images being suboptimal in quality. Reason For Study: Murmur,preop History: Murmur,preop. Ordering Physician: ALLA FLORES Performed By: Nadeen Mayes Interpretation Summary The left ventricle is normal in size. LV EF is 65% There is normal left ventricular wall thickness. Left ventricular systolic function is normal. Doppler measurements suggest impaired left ventricular relaxation, which is associated with grade I/IV or mild diastolic dysfunction The left ventricular wall motion is normal. There is no thrombus. The right ventricle is grossly normal size. The left atrial size is normal. There is no evidence of mitral valve prolapse. There is no mitral valve stenosis. There is a trace amount of mitral regurgitation There is no aortic valve stenosis There is no LVOT obstruction. No aortic regurgitation is present. There is no tricuspid stenosis. There is a trace amount of tricuspid regurgitation Right ventricular systolic pressure is normal. RVSP is 29 mm of Hg , with RA mean of 5. There is no pulmonic valvular regurgitation. There is no pulmonic valvular stenosis. The aortic root is normal size. There is no pericardial effusion. MMode/2D Measurements & Calculations RVDd: 3.4 cm LVIDd: 4.4 cm FS: 32.7 % Ao root diam: 2.4 cm IVSd: 0.89 cm LVIDs: 2.9 cm EDV(Teich): 86.6 ml LVPWd: 1.0 cm ESV(Teich): 33.4 ml Ao root area: 4.6 cm2 EF(Teich): 61.4 % Doppler Measurements & Calculations MV E max briana: MV dec slope: Ao V2 max: LV V1 max P.3 cm/sec 163.2 cm/sec 5.2 mmHg MV A max briana: 578.1 cm/sec2 Ao max PG: LV V1 max: 181.3 cm/sec MV dec time: 10.7 mmHg 114.3 cm/sec MV E/A: 0.72 0.23 sec PA V2 max: TR max briana: 99.5 cm/sec 244.3 cm/sec PA max P.0 mmHgTR max P.9 mmHg Left Ventricle The left ventricle is normal in size. There is normal left ventricular wall thickness. LV EF is 65%. Left ventricular systolic function is normal. Doppler measurements suggest impaired left ventricular relaxation, which is associated with grade I/IV or mild diastolic dysfunction. The left ventricular wall motion is normal. There is no thrombus. Right Ventricle The right ventricle is grossly normal size. Atria The right atrium is normal. The left atrial size is normal. Mitral Valve There is mild mitral leaflet calcification. There is no evidence of mitral valve prolapse. There is no vegetation seen on the mitral valve. There is no mitral valve stenosis. There is a trace amount of mitral regurgitation. Aortic Valve There is no aortic valvular vegetation. There is no aortic valve stenosis. There is no LVOT obstruction. No aortic regurgitation is present. Tricuspid Valve There is no tricuspid stenosis. There is a trace amount of tricuspid regurgitation. Right ventricular systolic pressure is normal. RVSP is 29 mm of Hg , with RA mean of 5. Pulmonic Valve There is no pulmonic valvular stenosis. There is no pulmonic valvular regurgitation. Great Vessels The aortic root is normal size. Effusions There is no pericardial effusion. : ALLA FLORES > Alla Flores
--- NOTE | 2017-08-22 20:28 | PDOC PROGRESS REPORT ---
Subjective Progress Note for:: 08/22/17 Subjective:: Preliminary Note. Patient is a 76-year-old female who fell and complained of pain in the left hip was found to have a left femoral neck fracture, and is scheduled for surgery tomorrow. She has a history of diabetes mellitus, severe rheumatoid arthritis, and possibly mild hypertension. She has no history of syncope. It seems like the patient in the kitchen slipped and fell. There was no loss of consciousness no chest pain or discomfort no arrhythmias. She has no history of coronary artery disease [place] or anginal symptoms there is no history of congestive heart failure. The patient's EKG shows some mild nonspecific T inversions in the lateral leads. I recommended and offered the patient to have a stress test prior to surgery. But the patient claims that she wants to have the surgery done and does not want a stress test and is not really keen on it. Impression 1 left femoral neck fracture for surgery #2 diabetes mellitus non- insulin-dependent #3 severe rheumatoid arthritis. #4 mild hypertension. The patient's echocardiogram shows normal LV ejection fraction no significant regurgitant or stenotic lesions and no significant pulmonary hypertension. In view of this the patient will be an acceptable risk from cardiac standpoint of view. Would recommend perioperatively to monitor the patient's heart rhythm on the telemetry, and postoperatively would get serial EKGs and enzymes. I have discussed this with the patient and patient's son and [id number]. The patient is aware that there is always a chance of myocardial infarction arrhythmia congestive heart failure and even . The patient still prefers not to have a stress test and would rather go straight to surgery. Will closely observe the patient postoperatively and watch her cautiously for development of any untoward cardiac events. Echo results has been discussed with the patient. Formal consult dictated. Reason For Visit: LEFT HIP FRACTURE. Preoperative cardiac evaluation for cardiac risk assessment for surgery. Physical Exam Vital Signs: Temp Pulse Resp BP Pulse Ox 97.9 F 73 18 151/61 H 91 L 08/22/17 15:44 08/22/17 15:44 08/22/17 15:44 08/22/17 15:44 08/22/17 15:44 Intake & Output 08/21/17 08/22/17 08/23/17 06:59 06:59 06:59 Intake Total 900 Output Total 900 Balance 0 Weight 68.039 kg Results Laboratory Results: 08/22/17 06:06 08/22/17 06:06 08/22/17 08/22/17 06:06 06:06 WBC 7.4 RBC 3.90 Hgb 11.9 L Hct 35.0 L MCV 90 MCH 30.5 MCHC 33.9 RDW 14.5 H Plt Count 191 Seg Neutrophils % 72.5 Lymphocytes % 15.5 Monocytes % 7.8 Eosinophils % 3.6 Basophils % 0.6 Absolute Neutrophils 5.4 Absolute Lymphocytes 1.1 Absolute Monocytes 0.6 Absolute Eosinophils 0.3 Absolute Basophils 0.0 Sodium 137.8 Potassium 4.1 Chloride 105 Carbon Dioxide 24 Anion Gap 9 BUN 16 Creatinine 0.62 Est GFR ( Amer) > 60 Est GFR (Non-Af Amer) > 60 Glucose 82 Calcium 8.8 Magnesium 1.6 Impressions: Hip X-Ray 08/21/17 14:22 IMPRESSION: LEFT INTERTROCHANTERIC FEMORAL NECK FRACTURE. STATUS POST INTERNAL FIXATION RIGHT HIP WITHOUT COMPLICATION. Cervical Spine CT 08/21/17 14:40 IMPRESSION: CHRONIC DEGENERATIVE CHANGES. NO ACUTE FINDINGS. Head CT 08/21/17 14:40 IMPRESSION: No acute findings. EVIDENCE OF ACUTE STROKE: NO. Chest X-Ray 08/21/17 15:48 IMPRESSION: NO ACUTE RADIOGRAPHIC FINDING IN THE CHEST. NO SIGNIFICANT CHANGE FROM PRIOR STUDY.
[2017-08-22] MEDS: SIMVASTATIN 10 MG TABLET PO SCH (20:44)
--- NOTE | 2017-08-22 23:29 | CONSULTATION REPORT E ---
Consultation Report NAME: WENDI ESCOBAR : 1940 AGE: 76Y DATE: 08/22/2017 424 A TO: ESE FLORES M.D. FROM: KIRSTEN OLMEDO M.D. Requesting Physician REASON FOR CONSULTATION: Evaluation for cardiac risk factors for left hip surgery. HISTORY OF PRESENT ILLNESS: The patient is a 76-year-old female with a known history of mild hypertension, diabetes mellitus, type 2, noninsulin dependent without any complications and a history of severe rheumatoid arthritis who states that she was in the kitchen, she fell due to stumbling. She denies any loss of consciousness. There is no chest pain or discomfort. There is no palpitations. There is no shortness of breath. The patient subsequently had left hip pain and was brought to the emergency room where she was found to have a left femoral neck fracture and is for surgical repair of the same. She denies any chest pain, palpitations, PND, orthopnea. The patient was able to ambulate home prior to this with a walker, but she was mostly homebound but had no symptoms. There is no TIA or CVA symptoms. There is no leg edema. There is no palpitations or syncope. PAST MEDICAL HISTORY: Positive for a history of diabetes mellitus, type 2, noninsulin dependent. She also has a history of mild hypertension which is well controlled. She also has a history of severe rheumatoid arthritis and is on prednisone and methotrexate for this. She denies any history of thyroid disease, no history of coronary artery disease, no history of myocardial infarction or anginal symptoms Her EKG shows some mild nonspecific T inversion in the lateral leads, but in the past, she has had an EKG which showed significant T-wave abnormalities. The patient has not had any clinical event such as an VA or unstable angina. There is no history of congestive heart failure. There are no palpations or syncope. There is no TIA or CVA symptoms. There is no history of headaches, migraines, or seizures. There is no history of asthma or COPD. There is no history of pulmonary embolism. PAST SURGICAL HISTORY: Is positive for right hip replacement, right total knee replacement. She has also had left cataract surgery. FAMILY HISTORY: Positive for hypertension, malignancy. No history of coronary artery disease. SOCIAL HISTORY: The patient does not smoke. There is no history of EtOH abuse. ALLERGIES: The patient has no known allergies. DISPOSITION: The patient is a full code. Her son is the surrogate healthcare decision maker. MEDICATIONS: Include 1. Tylenol 325 mg p.o. every 4 hours p.r.n. 2. She is on vitamin D3 lozenges p.o. daily. 3. She is on glucose 40% 30 grams and 15 grams p.o. respectively p.r.n. hypoglycemia. 4. She is on Dextrose 50% 12.5 grams and 25 grams IV p.o. hypoglycemia. 5. She is on glucagon 1 mg IM p.r.n. hypoglycemia. 6. She is on folic acid 1 mg p.o. daily. 7. She is on hydralazine 10 mg IV every 6 hours p.r.n. 8. She is on Accu-Cheks before meals t.i.d. and adjust to a sliding scale with regular insulin coverage. 9. She is on normal saline 100 mL per hour. 10. She is on morphine sulfate 2 mg IV every 3 hours p.r.n. 11. She is on Zofran 4 mg IV every 6 hours p.r.n. 12. She is on oxycodone 2 tablets p.o. every 6 hours p.r.n. 13. Simvastatin/Zocor 20 mg p.o. nightly. 14. She is on Ambien 5 mg p.o. nightly p.r.n. At home, the patient was on lisinopril 10 mg p.o. daily and Metformin 750 mg p.o. daily. She is also on methotrexate 2.5 mg tablet 15 mg p.o. on Tuesdays every week. She is on simvastatin 20 mg p.o. nightly. She is on vitamin D 3000 units p.o. daily. She is on folic acid 1 mg tablet p.o. daily. She is on Metformin extended release 750 mg p.o. daily. REVIEW OF SYSTEMS: CONSTITUTIONAL: Denies any fever, chills, or rigors. She has generalized fatigue and weakness and rheumatoid arthritis. HEAD: Denies headaches or head injury. EYES: No history of amblyopia or diplopia. No history of amaurosis fugax. EARS: No history of hearing loss. No history of tinnitus. No history of recurrent ear infections. NOSE: No history of hayfever. No history of nosebleeds. No history of nasal polyps. MOUTH: No altered taste sensation. No ulcers in the mouth. No bleeding from the gums. THROAT: No odynophagia or dysphagia. No history of recurrent sore throats. SKIN: No history of pruritus. No history of skin cancer. No history of psoriasis. NECK: No history of enlarged neck lymph nodes. No symptoms suggestive of C-spine arthritis. LUNGS: No history of asthma or COPD. No history of recent upper respiratory tract infection or lower respiratory tract infection. No history of cough or fever, no wheezing. No history of asthma. No history of sleep apnea. No history of pulmonary embolism. No history of pleuritic chest pain. No history of hemoptysis. CARDIAC: History of hypertension present. No history of anginal symptoms. Her EKG is mildly abnormal but the patient does not want a stress test. She wants a surgery. Will watch the patient postoperatively closely and place the patient on telemetry and get serial EKGs and enzymes, as discussed with the patient and the patient's family. She has no history of congestive heart failure, no history of palpitations, no history of PND, orthopnea or leg edema. No history of syncope. No history of VA or anginal symptoms. History of mild hypertension which is well controlled. GASTROINTESTINAL: No history of GI bleed. No history of cirrhosis. No history of jaundice. No history of fatty food intolerance. No history of altered bowel movements. No history of GI bleed. ENDOCRINE: History of diabetes mellitus, type 2, noninsulin dependent. No complications of diabetes. No history of polydipsia or polyuria. No history of heat or cold intolerance. No history of hypothyroidism. METABOLIC: History of hyperlipidemia present, on Zocor. Patient states *------* are well controlled. No history of grew out. MUSCULOSKELETAL: History of rheumatoid arthritis is present with goose neck deformities of the fingers of her hands. She states that it is very significant but there is no acute joint swelling and joint pains are present. The patient is on steroids and methotrexate for this. CENTRAL NERVOUS SYSTEM: No history of TIA or CVA. No history of headaches, migraines, or seizures. The patient walks with a walker. No history of sleep apnea. PSYCHIATRIC: No history of anxiety or depression. No history of suicidal ideation. No history of homicidal ideation. VASCULAR: No history of calf or buttock claudication. No history of DVT. HEMATOLOGICAL: Past history of anemia. She has received several iron infusions in the past. Her latest hemoglobin was 13.5 and subsequently 11.9. Hence, no significant anemia. No history bleeding diathesis. No history of clotting disorders. Note she has an ulcer which is painful in the bottom of her left great toe, but she says it is recent. PHYSICAL EXAMINATION: GENERAL: On examination the patient seems to be well groomed, is of her stated age. She is in no acute distress. Her pain is controlled with her current pain medication. VITAL SIGNS: She is afebrile with a temperature of 98.5 degrees Fahrenheit, pulse is 71 beats per minute, blood pressure 136/51, respirations are 22 per minute, O2 saturations are 93% on room air. HEENT: Head is atraumatic, normocephalic. Eyes: Pupils are equal, round and regular, reactive to light and accommodation. Extraocular movements are normal. There is no conjunctival pallor. There is no scleral icterus. Ears: Tympanic membranes are intact, external auditory canals are clear. There are no lesions on the pinna. Nose: There is no deviated nasal septum. There is no inflammation of the nasal mucosa. There are no nasal polyps. Mouth: Mucous membranes of the mouth are moist. Tongue is moist. There are no ulcers. There is no bleeding from the gums. Throat: There is no redness of the oropharynx. There are no exudates. SKIN: There are no skin rashes. There is no skin lesions. There is no petechiae or ecchymosis. NECK: Supple. There is no JVD. Trachea is central. There is no bruit. There is no goiter. There is no lymphadenopathy. There is no jugular venous distention. LUNGS: Clear to auscultation and percussion. There is no chest wall tenderness. HEART: S1 and S2 is heard. There is no S3 gallop. There is no S4 gallop. There is a systolic murmur in the left sternal border and the apex. There is no rub. ABDOMEN: Soft, nontender. There is no hepatosplenomegaly. Bowel sounds are well-heard. There are no tender areas or masses. EXTREMITIES: There is foreshortening of the left lower extremity where the patient had the femoral fracture. Her moves are slightly diminished. There are no femoral bruits. Leg pulses are well-felt. There is no pedal edema. There is no DVT or cellulitis. There is no calf tenderness. There is no cyanosis or clubbing. CENTRAL NERVOUS SYSTEM: The patient is conscious, awake, alert, oriented x3 with no focal deficits. PSYCHIATRIC: The patient's judgment and insight are intact. His affect is normal. MUSCULOSKELETAL: There is no acute joint swelling. There is chronic goose neck deformities of the fingers of the upper extremities suggestive of advanced rheumatoid arthritis. DIAGNOSTIC STUDIES: The patient's EKG shows sinus rhythm with nonspecific T inversion in the lateral leads, which is borderline, abnormal. The patient's hip x-ray shows left intertrochanteric femoral neck fracture, status post internal fixation, right hip without complications. The patient's cervical spine CT shows chronic dressing changes, no acute findings. Chest x-ray shows no acute infiltrates. The patient's head CT shows no acute findings. No evidence of stroke. The patient's echocardiogram done because the patient has a systolic murmur shows left ventricle is of normal size. LV ejection fraction is 65%. There is normal left ventricular wall thickness. Left ventricular systolic function is normal. The left ventricular wall motion is normal. Doppler measurements suggest impaired left ventricular relaxation which is *------* or mild diastolic dysfunction. There is no evidence of mitral valve prolapse. There is no mitral valve stenosis. There is trace amount of mitral regurgitation. There is no aortic valve stenosis. There is no aortic regurgitation present. There is no tricuspid stenosis. There is trace amount of tricuspid regurgitation. Right ventricular systolic pressure is normal with a right ventricular systolic pressure of 29 mmHg with a RA mean of 5. There is no pericardial effusion. The patient's white count is 7400, hemoglobin is 11.9, hematocrit 35. The patient's platelet count is 191,000. The patient's sodium is 137.8, potassium 4.1, chloride 105, CO2 is 24. The patient's BUN is 16, creatinine is 0.62. GFR is greater than 60. The patient's glucose is 82 and subsequently it was 120. Potassium was 8.8, magnesium 1.6. IMPRESSION: 1. Accidental fall with fracture of the left femoral neck, for surgery. 2. Systolic murmur. 3. Diabetes mellitus type 2, noninsulin dependent. Blood sugars are well controlled. 4. Mild hypertension. Blood pressure is well controlled. 5. Hyperlipidemia. 6. Significant rheumatoid arthritis. 7. Past history of anemia. Now hemoglobin is stable. 8. Preoperative cardiac risk assessment. RECOMMENDATIONS: As mentioned earlier, the patient was not interested in having a stress test. In view of the patient's acute need for surgery, would recommend that the patient would be an acceptable risk for the surgery. Would monitor the patient on telemetry perioperatively and postoperatively. Also will get postoperative serial cardiac enzymes and EKG. This has been discussed with the patient and the patient's family. If there should be an untoward cardiac event, then would address it at that time, including transfer to tertiary center. The patient is agreeable to this. She is aware that acceptable risks such as developing an VA, congestive heart failure, arrhythmia, and stroke and also very rarely sudden . Note the patient was seen around 12:15 p.m. and 45 minutes spent on this patient with more than 50% of the time spent on direct patient care. Her medications have been reviewed. Note in view of the patient's heart rate being slightly low, would not recommend starting the patient on a beta valeria at present in view of the beta valeria causing symptomatic bradycardia and in a patient who is scheduled for surgery. Note medical decision making was of high complexity. We will follow with you. A short note has been dictated so that the surgeon gets a cardiac risk assessment for the surgery since this dictation might take some time. Note the echo findings were discussed with the patient and will discuss the echo findings with the patient's daughter later. DICTATING PHYSICIAN: ESE FLORES M.D. [id number] PHY#: [id number] ID: [id number] JOB#: [id number] ACCT: [id number] cc:ESE FLORES M.D. >
[2017-08-23] MEDS: ONDANSETRON HCL INJ/PF 4 MG/2 ML SDV IV PRN ×2 (00:03→06:47)
[2017-08-23] MEDS: MORPHINE SULFATE 10 MG/ML INJ IV PRN ×2 (06:47→21:40)
[2017-08-23] MEDS: FOLIC ACID 1 MG TABLET PO SCH (10:14)
[2017-08-23] MEDS: CHOLECALCIFEROL (D3) 1,000 UNIT TABLET PO SCH (10:14)
[2017-08-23] MEDS ORDERED: DEXAMETHASONE SOD PHOSPHATE INJ 4 MG/1 ML VIAL ONE (13:59)
[2017-08-23] MEDS ORDERED: METOCLOPRAMIDE HCL INJ/PF 10 MG/2 ML SDV ONE (13:59)
[2017-08-23] MEDS ORDERED: ONDANSETRON HCL INJ/PF 4 MG/2 ML SDV ONE (13:59)
[2017-08-23] MEDS ORDERED: LIDOCAINE 2% INJ-PF (20 MG/ML) 2 ML AMPUL ONE (13:59)
[2017-08-23] MEDS ORDERED: CEFAZOLIN INJ 1 GM VIAL ONE (16:00)
[2017-08-23] MEDS ORDERED: FENTANYL CITRATE INJ/PF 100 MCG/2 ML AMPUL ONE (16:02)
[2017-08-23] MEDS ORDERED: MIDAZOLAM 2 MG/2 ML INJ ONE (16:03)
[2017-08-23] MEDS ORDERED: EPHEDRINE SULFATE INJ 50 MG/1 ML AMPULE ONE (16:03)
[2017-08-23] MEDS ORDERED: KETAMINE HCL INJ 500 MG/10 ML VIAL ONE (16:05)
[2017-08-23] MEDS ORDERED: PROPOFOL INJ 200 MG/20 ML VIAL IV ONE ×2 (16:05→16:06)
[2017-08-23] MEDS ORDERED: PROMETHAZINE HCL INJ 25 MG/1 ML VIAL IV PRN ×2 (16:44)
[2017-08-23] MEDS ORDERED: DIPHENHYDRAMINE HCL 50 MG/ML VIAL IV PRN (16:44)
[2017-08-23] MEDS ORDERED: MEPERIDINE HCL/PF INJ 25 MG/1 ML DISP.SYRIN IV PRN (16:44)
[2017-08-23] MEDS ORDERED: FENTANYL CITRATE INJ/PF 100 MCG/2 ML AMPUL IV PRN ×3 (16:44)
[2017-08-23] MEDS ORDERED: ONDANSETRON HCL INJ/PF 4 MG/2 ML SDV IV PRN (16:44)
[2017-08-23] MEDS ORDERED: MORPHINE SULFATE 10 MG/ML INJ IV PRN (16:44)
--- NOTE | 2017-08-23 16:59 | Operative Report ---
Operative Report DATE OF SURGERY: 08/23/17 PREOPERATIVE DIAGNOSIS: Left intratrochanteric femur fracture OPERATION: Open reduction internal fixation left intratrochanteric femur fracture SURGEON: LEE MACE ANESTHESIA: Spinal ESTIMATED BLOOD LOSS: 100 PROCEDURE: With the patient supine on the fracture table the left lower extremity is manipulated under fluoroscopic guidance to affected near anatomic reduction. Subsequently the extremity and hindquarter prepped and draped in sterile fashion. A pin was placed percutaneously through the greater trochanter down to the proximal femoral metadiaphysis. A combined reamers and used to fashion a cortical opening. These are removed and a ball-tipped guide deejay was advanced down. Femoral depth measured to be 380 mm. Subsequently a Glo gamma 3 nail , 11 x 125 by 380 mm is passed over the ball-tipped guide deejay to an appropriate depth for the proximal interlock. A 95 proximal interlock is placed. A 55 distal interlock is placed. At this point the wounds irrigated and closed with Vicryl followed by dominick. Sterile compressive dressings are applied and the patient's return to the PACU in satisfactory condition.
--- NOTE | 2017-08-23 17:35 | RADIOLOGY REPORT (SQ) ---
EXAM DESCRIPTION: NO CHG FLUORO; HIP LEFT AP/LATERAL COMPLETED DATE/TIME: 08/23/2017 5:25 pm REASON FOR STUDY: ORIF LT HIP COMPARISON: Preoperative radiographs 08/21/2016. FLUOROSCOPY TIME: 0.9 minutes 4 images saved to PACS. TECHNIQUE: Intra-operative images acquired during surgical procedure to evaluate progress. NUMBER OF IMAGES: 4 LIMITATIONS: None. FINDINGS: Open reduction internal fixation of hip fracture. Presumably left hip, side not annotated on the images. Grossly anatomic alignment. IMPRESSION: IMAGE(S) OBTAINED DURING PROCEDURE. COMMENT: Quality ID [id number]: Final reports for procedures using fluoroscopy that document radiation exp osure indices, or exposure time and number of fluorographic images (if radiation exposure indices are not available) Please consult full operative report of the attending physician for description of the procedure. TECHNICAL DOCUMENTATION: JOB ID: [id number] [employer]- All Rights Reserved
--- NOTE | 2017-08-23 17:35 | RADIOLOGY REPORT (SQ) ---
EXAM DESCRIPTION: NO CHG FLUORO; HIP LEFT AP/LATERAL COMPLETED DATE/TIME: 08/23/2017 5:25 pm REASON FOR STUDY: ORIF LT HIP COMPARISON: Preoperative radiographs 08/21/2016. FLUOROSCOPY TIME: 0.9 minutes 4 images saved to PACS. TECHNIQUE: Intra-operative images acquired during surgical procedure to evaluate progress. NUMBER OF IMAGES: 4 LIMITATIONS: None. FINDINGS: Open reduction internal fixation of hip fracture. Presumably left hip, side not annotated on the images. Grossly anatomic alignment. IMPRESSION: IMAGE(S) OBTAINED DURING PROCEDURE. COMMENT: Quality ID [id number]: Final reports for procedures using fluoroscopy that document radiation exp osure indices, or exposure time and number of fluorographic images (if radiation exposure indices are not available) Please consult full operative report of the attending physician for description of the procedure. TECHNICAL DOCUMENTATION: JOB ID: [id number] [employer]- All Rights Reserved
[2017-08-23] MEDS ORDERED: RINGERS SOLUTION,LACTATED 1,000 ML IV PRN (17:38)
--- NOTE | 2017-08-23 21:24 | PROGRESS NOTE E ---
Progress Note NAME: WENDI ESCOBAR : 1940 AGE: 76Y DATE: 08/23/2017 ROOM: 424 SUBJECTIVE: Note that the patient was seen in the evening around 8:00, when she had come back from surgery. The patient at present in bed without any complaints. She denies any chest pain or discomfort. There is no PND or orthopnea. There are no palpitations. There is no leg edema. There are no TIA or CVA symptoms. There is no dizziness or weakness. She denies any palpitations. Her pain at the site of surgery is well controlled. OBJECTIVE: GENERAL: The patient is well built and well nourished, in no acute distress. VITAL SIGNS: She is afebrile with a temperature of 98.4 degrees Fahrenheit. Pulse is 92 beats per minute. Blood pressure is 123/48. Respirations are 18 per minute. O2 sats are *------* on room air. HEAD: Atraumatic, normocephalic. EYES: Pupils are equal, round regular, reactive to light and accommodation. Extraocular movements are normal. There is no conjunctival pallor. There is no scleral icterus. ENT: Negative. NECK: Supple. There is no JVD. Carotids are equal. There is no bruit. There is no goiter. There is no lymphadenopathy. Trachea is central. LUNGS: Clear to auscultation and percussion. HEART: S1/S2 heard. There is no S3 gallop. There is no S4 gallop. There is a systolic murmur in the left sternal border and the apex. There is no rub. ABDOMEN: Soft, nontender. There is no hepatosplenomegaly. Bowel sounds are well heard. There are no tender areas or masses. SKIN: There are no skin rashes. There are no skin lesions. There are no petechiae or ecchymosis. Note that the dressing at the site of surgery is clean. EXTREMITIES: Femoral pulses are slightly diminished. There are no femoral bruits. Leg pulses are well felt. There is no pedal edema. There is no DVT or cellulitis. There is no calf tenderness. CENTRAL NERVOUS SYSTEM: The patient is conscious, awake, alert, oriented x3, with no focal deficits. PSYCHIATRIC: The patient's judgement and insight are intact. Her affect is normal. LABORATORY DATA: The patient's glucose is 113 and 93. ASSESSMENT: 1. Left femoral neck fracture, status post surgery, stable. 2. Systolic murmur. This is a "FLOW MURMUR." 3. Diabetes mellitus type 2, non-insulin dependent. Blood sugars well controlled. 4. Mild hypertension. Blood pressure well controlled. 5. Hyperlipidemia. 6. Significant rheumatoid arthritis. 7. Past history of anemia. Now hemoglobin is stable. RECOMMENDATIONS: Will get patient EKG and cardiac enzymes in the form of troponin-I in the a.m. Will follow the patient closely. Continue monitoring the patient. Continue current therapy. Note, 25 minutes spent with this patient. Also discussed the echo findings with the patient. More than 50% of the time spent in direct patient care. Medications have been reviewed and the case discussed with other caregiving providers on the case. Medical decision making today is of moderate complexity. Will follow with you. DICTATING PHYSICIAN: ESE FLORES M.D. [id number] CASIMIRO#: [id number] ID: [id number] JOB#: [id number] ACCT: [id number] cc: >
[2017-08-23] MEDS: SIMVASTATIN 10 MG TABLET PO SCH (21:40)
[2017-08-23] MEDS: CEFAZOLIN 2 GM/D5W RTU 2 GM/50 ML RTUPB IV SCH (21:41)
[2017-08-24] MEDS: MORPHINE SULFATE 10 MG/ML INJ IV PRN (01:54)
[2017-08-24] MEDS: CEFAZOLIN 2 GM/D5W RTU 2 GM/50 ML RTUPB IV SCH (06:01)
[2017-08-24 06:49] LABS: HEMATOCRIT 30.8 % (36.0-47.0); HEMOGLOBIN 10.3 g/dL (12.0-15.5); MEAN CORPUSCULAR HEMOGLOBIN 30.6 pg (27.0-33.4); MEAN CORPUSCULAR HGB CONC 33.6 g/dL (32.0-36.0); MEAN CORPUSCULAR VOLUME 91 fl (80-97); PLATELET COUNT 157 10^3/uL (150-450); RED BLOOD COUNT 3.38 10^6/uL (3.72-5.28); RED CELL DISTRIBUTION WIDTH 14.6 % (11.5-14.0); WHITE BLOOD COUNT 7.5 10^3/uL (4.0-10.5)
[2017-08-24 07:07] LABS: ANION GAP 9 (5-19); BLOOD UREA NITROGEN 14 mg/dL (7-20); CALCIUM 8.3 mg/dL (8.4-10.2); CARBON DIOXIDE 22 mmol/L (22-30); CHLORIDE 106 mmol/L (98-107); GLUCOSE 177 mg/dL (75-110); POTASSIUM 4.2 mmol/L (3.6-5.0); SODIUM 137.3 mmol/L (137-145)
--- NOTE | 2017-08-24 07:40 | PDOC PROGRESS REPORT ---
Subjective Progress Note for:: 08/24/17 Subjective:: Patient states this morning she is feeling well she has no chest pain no shortness of breath No nausea no vomiting ; she has minimal pain in her left hip Reason For Visit: LEFT HIP FRACTURE,CHRONIC ANTICOAGULATION Physical Exam Vital Signs: Temp Pulse Resp BP Pulse Ox 98.6 F 96 18 129/56 H 93 08/23/17 23:18 08/23/17 23:18 08/23/17 23:18 08/23/17 23:18 08/23/17 23:18 Intake & Output 08/23/17 08/24/17 08/25/17 00:59 00:59 00:59 Intake Total 1020 6318 1750 Output Total 1800 1545 300 Balance -780 4773 1450 General appearance: PRESENT: no acute distress, well-developed, well-nourished Head exam: PRESENT: atraumatic, normocephalic Eye exam: PRESENT: conjunctiva pink, EOMI, PERRLA. ABSENT: scleral icterus Ear exam: PRESENT: normal external ear exam Mouth exam: PRESENT: moist, tongue midline Neck exam: ABSENT: carotid bruit, JVD, lymphadenopathy, thyromegaly Respiratory exam: PRESENT: clear to auscultation gertrudis. ABSENT: rales, rhonchi, wheezes Cardiovascular exam: PRESENT: RRR. ABSENT: diastolic murmur, rubs, systolic murmur Pulses: PRESENT: normal dorsalis pedis pul Vascular exam: PRESENT: normal capillary refill GI/Abdominal exam: PRESENT: normal bowel sounds, soft. ABSENT: distended, guarding, mass, organolmegaly, rebound, tenderness Rectal exam: PRESENT: deferred Extremities exam: PRESENT: full ROM. ABSENT: calf tenderness, clubbing, pedal edema Neurological exam: PRESENT: alert, awake, oriented to person, oriented to place , oriented to time, oriented to situation, CN II-XII grossly intact. ABSENT: motor sensory deficit Psychiatric exam: PRESENT: appropriate affect, normal mood. ABSENT: homicidal ideation, suicidal ideation Skin exam: PRESENT: dry, intact, warm. ABSENT: cyanosis, rash Results Laboratory Results: 08/24/17 05:39 08/24/17 05:39 08/24/17 08/24/17 05:39 05:39 WBC 7.5 RBC 3.38 L Hgb 10.3 L Hct 30.8 L MCV 91 MCH 30.6 MCHC 33.6 RDW 14.6 H Plt Count 157 Sodium 137.3 Potassium 4.2 Chloride 106 Carbon Dioxide 22 Anion Gap 9 BUN 14 Creatinine 0.67 Est GFR ( Amer) > 60 Est GFR (Non-Af Amer) > 60 Glucose 177 H Calcium 8.3 L 08/24/17 05:39 Troponin I 0.941 EKG Comments: EKG today Echocardiogram normal sinus rhythm [address] depression in precordial leads Echocardiogram EF 65 % Mild diastolic dysfunction Impressions: Cervical Spine CT 08/21/17 14:40 IMPRESSION: CHRONIC DEGENERATIVE CHANGES. NO ACUTE FINDINGS. Head CT 08/21/17 14:40 IMPRESSION: No acute findings. EVIDENCE OF ACUTE STROKE: NO. Chest X-Ray 08/21/17 15:48 IMPRESSION: NO ACUTE RADIOGRAPHIC FINDING IN THE CHEST. NO SIGNIFICANT CHANGE FROM PRIOR STUDY. Fluoroscopy 08/23/17 00:00 IMPRESSION: IMAGE(S) OBTAINED DURING PROCEDURE. Hip X-Ray 08/23/17 00:00 IMPRESSION: IMAGE(S) OBTAINED DURING PROCEDURE. Assessment & Plan - Diagnosis (1) Elevated troponin Is this a current diagnosis for this admission?: Yes Plan: Troponin this morning is 0.9 Patient is totally asymptomatic Her EKG shows very slight ST depression ? Is it an acute non-STEMI Discussed the case with Dr. Vidales we will initiate metoprolol 25 mg p.o. twice daily Cycle troponins q6H repeat an EKG at 2 PM Increase Ecotrin to 325 mg daily noted that H&H is stable at 10/30 (2) Diabetes Qualifiers: Diabetes mellitus type: type 2 Diabetes mellitus complication status: with neurologic complications Diabetes mellitus complication detail: with unspecified neuropathy Diabetes mellitus manager terminal insulin use: without senior living use Qualified Code(s): E11.40 - Type 2 diabetes mellitus with diabetic neuropathy, unspecified Is this a current diagnosis for this admission?: Yes Plan: Continue to hold metformin Lispro coverage (3) HTN (hypertension) Qualifiers: Hypertension type: essential hypertension Qualified Code(s): I10 - Essential (primary) hypertension Is this a current diagnosis for this admission?: Yes (4) Immunosuppressed status Is this a current diagnosis for this admission?: Yes (5) Intertrochanteric fracture of left hip Qualifiers: Encounter type: initial encounter Fracture type: closed Fracture alignment: nondisplaced Qualified Code(s): S72.145A - Nondisplaced intertrochanteric fracture of left femur, initial encounter for closed fracture Is this a current diagnosis for this admission?: Yes Plan: Surgery was uncomplicated (6) Rheumatoid arthritis Qualifiers: Rheumatoid arthritis location: hand Rheumatoid factor presence: unspecified presence Laterality: bilateral Qualified Code(s): M06.9 - Rheumatoid arthritis, unspecified Is this a current diagnosis for this admission?: Yes Plan: Continue to hold methotrexate - Time Time Spent with patient: 25-34 minutes
[2017-08-24] MEDS: INSULIN LISPRO 100 UNIT/ML 3 ML VIAL SUBCUT PRN (08:02)
[2017-08-24] MEDS: OXYCODONE-ACETAMINOPHEN 5-325 MG TABLET PO PRN (08:03)
[2017-08-24] MEDS ORDERED: METOPROLOL TARTRATE 25 MG TABLET PO ONE (08:15)
--- NOTE | 2017-08-24 09:16 | PDOC PROGRESS REPORT ---
Subjective Progress Note for:: 08/24/17 Subjective:: 76-year-old white female one day status post open reduction internal fixation for left intertrochanteric femur fracture. Patient lying recumbent in hospital bed this morning notes she is comfortable currently however is experiencing pain postoperatively. She also notes that she is very nervous about walking. Patient was reassured that physical therapy would be able to assist in ambulation. Reason For Visit: LEFT HIP FRACTURE,CHRONIC ANTICOAGULATION Physical Exam Vital Signs: Temp Pulse Resp BP Pulse Ox 37.2 C 87 18 126/60 H 97 08/24/17 07:50 08/24/17 07:50 08/24/17 07:50 08/24/17 07:50 08/24/17 07:50 Intake & Output 08/23/17 08/24/17 08/25/17 06:59 06:59 06:59 Intake Total 2220 6868 Output Total 2450 1195 Balance -230 5673 General appearance: PRESENT: no acute distress, well-developed, well-nourished Head exam: PRESENT: atraumatic, normocephalic Pulses: PRESENT: normal dorsalis pedis pul, +2 pedal pulses bilateral Vascular exam: PRESENT: normal capillary refill Additional comments: Patient lying recumbent in hospital bed with bilateral lower extremities in full extension. Her OpSite dressings are clean dry and intact. These are left in place. She has brisk capillary refill to toes on bilateral lower extremities and minimal pedal edema. Her sensory motor functions are intact and her distal neurovascular exam is intact. Additional comments: Patient has not yet been ambulatory postoperatively. She will work with physical therapy today to work towards ambulation postoperatively and improve strength range of motion of left lower extremity. Neurological exam: PRESENT: alert, awake, oriented to person, oriented to place , oriented to time, oriented to situation, CN II-XII grossly intact. ABSENT: motor sensory deficit Psychiatric exam: PRESENT: appropriate affect, normal mood. ABSENT: homicidal ideation, suicidal ideation Skin exam: PRESENT: dry, intact, warm. ABSENT: cyanosis, rash Results Laboratory Results: 08/24/17 05:39 08/24/17 05:39 08/24/17 08/24/17 05:39 05:39 WBC 7.5 RBC 3.38 L Hgb 10.3 L Hct 30.8 L MCV 91 MCH 30.6 MCHC 33.6 RDW 14.6 H Plt Count 157 Sodium 137.3 Potassium 4.2 Chloride 106 Carbon Dioxide 22 Anion Gap 9 BUN 14 Creatinine 0.67 Est GFR ( Amer) > 60 Est GFR (Non-Af Amer) > 60 Glucose 177 H Calcium 8.3 L 08/24/17 05:39 Troponin I 0.941 Impressions: Cervical Spine CT 08/21/17 14:40 IMPRESSION: CHRONIC DEGENERATIVE CHANGES. NO ACUTE FINDINGS. Head CT 08/21/17 14:40 IMPRESSION: No acute findings. EVIDENCE OF ACUTE STROKE: NO. Chest X-Ray 08/21/17 15:48 IMPRESSION: NO ACUTE RADIOGRAPHIC FINDING IN THE CHEST. NO SIGNIFICANT CHANGE FROM PRIOR STUDY. Fluoroscopy 08/23/17 00:00 IMPRESSION: IMAGE(S) OBTAINED DURING PROCEDURE. Hip X-Ray 08/23/17 00:00 IMPRESSION: IMAGE(S) OBTAINED DURING PROCEDURE. Assessment & Plan - Diagnosis (1) Intertrochanteric fracture of left hip Qualifiers: Encounter type: subsequent encounter Fracture type: closed Fracture alignment: nondisplaced Is this a current diagnosis for this admission?: Yes - Plan Summary Plan Summary: 76-year-old white female one day status post open reduction internal fixation for intertrochanteric fracture of left femur. Patient has not yet ambulated postoperatively. She will work with physical therapy today to work towards independent ambulation with walker and improve strength and range of motion of left lower extremity. She seems apprehensive however was reassured that physical therapy is more than capable of helping her ambulate postoperatively. She notes that she has continued pain however she was informed that she has postoperative analgesic medications which she can ask for from nursing staff. She voiced understanding of this and agreed to work with therapy today.
[2017-08-24] MEDS: FOLIC ACID 1 MG TABLET PO SCH (09:51)
[2017-08-24] MEDS: CHOLECALCIFEROL (D3) 1,000 UNIT TABLET PO SCH (09:51)
[2017-08-24] MEDS: ASPIRIN 325 MG TABLET, ENT COATED PO SCH (09:51)
[2017-08-24] MEDS ORDERED: ASPIRIN 81 MG TABLET, ENT COATED PO SCH ×2 (10:00)
[2017-08-24] MEDS ORDERED: HYDRALAZINE HCL INJ/PF 20 MG/1 ML SDV IV PRN (14:30)
--- NOTE | 2017-08-24 17:03 | EKG REPORT ---
SEVERITY:- NORMAL ECG - SINUS RHYTHM LEFT VENTRICULAR HYPERTROPHY WITH LVH AND SECONDARY ST-T WAVE CHANGES : Confirmed by: Abdelrahman Cantu 24-Aug-2017 17:02:42
--- NOTE | 2017-08-24 17:05 | EKG REPORT ---
SEVERITY:- ABNORMAL ECG - SINUS RHYTHM NONSPECIFIC REPOL ABNORMALITY, LATERAL LEADS LVH WITH SECONDARY ST-T WAVE CHANGES : Confirmed by: Abdelrahman Cantu 24-Aug-2017 17:04:29
[2017-08-24] MEDS: METOPROLOL TARTRATE 25 MG TABLET PO SCH (22:41)
[2017-08-24] MEDS: OXYCODONE HCL IR 5 MG TABLET PO PRN (22:41)
[2017-08-24] MEDS: SIMVASTATIN 10 MG TABLET PO SCH (22:41)
--- NOTE | 2017-08-25 06:45 | PDOC PROGRESS REPORT ---
Subjective Progress Note for:: 08/25/17 Subjective:: 76-year-old white female with severe rheumatoid arthritis postop day 2 status post left intratrochanteric femur fracture internal fixation. She complaining primarily of left lower extremity pain today. Has not been out of bed with physical therapy yet. Reason For Visit: LEFT HIP FRACTURE,CHRONIC ANTICOAGULATION Physical Exam Vital Signs: Temp Pulse Resp BP Pulse Ox 37.0 C 76 18 122/55 L 94 08/25/17 03:27 08/25/17 03:27 08/25/17 03:27 08/25/17 03:27 08/25/17 03:27 Intake & Output 08/23/17 08/24/17 08/25/17 06:59 06:59 06:59 Intake Total 2220 6868 3950 Output Total 2450 1195 200 Balance -230 5673 3750 General appearance: PRESENT: no acute distress, mild distress Head exam: PRESENT: normocephalic Respiratory exam: PRESENT: unlabored Cardiovascular exam: PRESENT: RRR Pulses: PRESENT: +1 pedal pulses bilateral Vascular exam: PRESENT: normal capillary refill GI/Abdominal exam: PRESENT: soft Rectal exam: PRESENT: deferred Musculoskeletal exam: PRESENT: other - Left lower extremity dressings clean dry and intact. Distal neurovascular examination is intact. Neurological exam: PRESENT: alert, awake, oriented to person, oriented to place , oriented to time, oriented to situation. ABSENT: motor sensory deficit Psychiatric exam: PRESENT: appropriate affect, normal mood. ABSENT: homicidal ideation, suicidal ideation Skin exam: PRESENT: dry, intact, warm. ABSENT: cyanosis, rash Results Laboratory Results: 08/24/17 05:39 08/24/17 05:39 08/24/17 08/24/17 05:39 05:39 WBC 7.5 RBC 3.38 L Hgb 10.3 L Hct 30.8 L MCV 91 MCH 30.6 MCHC 33.6 RDW 14.6 H Plt Count 157 Sodium 137.3 Potassium 4.2 Chloride 106 Carbon Dioxide 22 Anion Gap 9 BUN 14 Creatinine 0.67 Est GFR ( Amer) > 60 Est GFR (Non-Af Amer) > 60 Glucose 177 H Calcium 8.3 L 08/24/17 08/24/17 08/24/17 05:39 11:52 17:54 Troponin I 0.941 1.910 1.430 08/25/17 00:13 Troponin I 1.050 Impressions: Cervical Spine CT 08/21/17 14:40 IMPRESSION: CHRONIC DEGENERATIVE CHANGES. NO ACUTE FINDINGS. Head CT 08/21/17 14:40 IMPRESSION: No acute findings. EVIDENCE OF ACUTE STROKE: NO. Chest X-Ray 08/21/17 15:48 IMPRESSION: NO ACUTE RADIOGRAPHIC FINDING IN THE CHEST. NO SIGNIFICANT CHANGE FROM PRIOR STUDY. Fluoroscopy 08/23/17 00:00 IMPRESSION: IMAGE(S) OBTAINED DURING PROCEDURE. Hip X-Ray 08/23/17 00:00 IMPRESSION: IMAGE(S) OBTAINED DURING PROCEDURE. Status: Imported from PACS Assessment & Plan - Diagnosis (1) Intertrochanteric fracture of left hip Qualifiers: Encounter type: subsequent encounter Fracture type: closed Fracture alignment: nondisplaced Is this a current diagnosis for this admission?: Yes Plan: Patient to be mobilized with physical therapy for weightbearing as tolerated ambulation (2) Diabetes Qualifiers: Diabetes mellitus type: type 2 Diabetes mellitus complication status: with neurologic complications Diabetes mellitus complication detail: with unspecified neuropathy Diabetes mellitus terminal carman insulin use: without terminal carman use Qualified Code(s): E11.40 - Type 2 diabetes mellitus with diabetic neuropathy, unspecified Is this a current diagnosis for this admission?: Yes Plan: Under reasonable control (3) Elevated troponin Is this a current diagnosis for this admission?: Yes Plan: Patient with an elevated troponin and changes on EKG suggesting an underlying primary cardiac event - Time Time Spent with patient: 15-24 minutes Anticipated discharge: SNF Within: Other
[2017-08-25] MEDS: ASPIRIN 325 MG TABLET, ENT COATED PO SCH (09:15)
[2017-08-25] MEDS: OXYCODONE HCL IR 5 MG TABLET PO PRN (09:15)
[2017-08-25] MEDS: CHOLECALCIFEROL (D3) 1,000 UNIT TABLET PO SCH (09:16)
[2017-08-25] MEDS: METOPROLOL TARTRATE 25 MG TABLET PO SCH ×2 (09:16→21:49)
[2017-08-25] MEDS: FOLIC ACID 1 MG TABLET PO SCH (09:17)
--- NOTE | 2017-08-25 09:41 | EKG REPORT ---
SEVERITY:- ABNORMAL ECG - SINUS RHYTHM VENTRICULAR PREMATURE COMPLEX PROBABLE LVH WITH SECONDARY REPOL ABNRM : Confirmed by: Abdelrahman Cantu 25-Aug-2017 09:41:05
--- NOTE | 2017-08-25 11:29 | PDOC PROGRESS REPORT ---
Subjective Progress Note for:: 08/25/17 Subjective:: Patient has no chest pain no shortness of breath no abdominal pain nausea vomiting She is alert and awake States she feels tired Reason For Visit: LEFT HIP FRACTURE,CHRONIC ANTICOAGULATION Physical Exam Vital Signs: Temp Pulse Resp BP Pulse Ox 100.3 F 84 20 139/49 H 96 08/25/17 07:39 08/25/17 07:39 08/25/17 07:39 08/25/17 07:39 08/25/17 07:39 Intake & Output 08/24/17 08/25/17 08/26/17 00:59 00:59 00:59 Intake Total 6318 5460 240 Output Total 1545 500 Balance 4773 4960 240 General appearance: PRESENT: no acute distress, well-developed, well-nourished Head exam: PRESENT: atraumatic, normocephalic Eye exam: PRESENT: conjunctiva pale Neck exam: ABSENT: carotid bruit, JVD, lymphadenopathy, thyromegaly Respiratory exam: PRESENT: clear to auscultation gertrudis. ABSENT: rales, rhonchi, wheezes Cardiovascular exam: PRESENT: RRR. ABSENT: diastolic murmur, rubs, systolic murmur Pulses: PRESENT: normal dorsalis pedis pul GI/Abdominal exam: PRESENT: normal bowel sounds, soft. ABSENT: distended, guarding, mass, organolmegaly, rebound, tenderness Neurological exam: PRESENT: alert, altered, awake, oriented to person, oriented to place, CN II-XII grossly intact Results Laboratory Results: 08/24/17 05:39 08/24/17 05:39 08/24/17 08/24/17 08/24/17 05:39 11:52 17:54 Troponin I 0.941 1.910 1.430 08/25/17 08/25/17 00:13 08:32 Troponin I 1.050 0.798 EKG Comments: SINUS RHYTHM [VPC] . VENTRICULAR PREMATURE COMPLEX [LVHPRE] . PROBABLE LVH WITH SECONDARY REPOL ABNRM 08/24/17 08/25/17 08/25/17 17:54 00:13 08:32 Troponin I 1.430 1.050 0.798 Impressions: Cervical Spine CT 08/21/17 14:40 IMPRESSION: CHRONIC DEGENERATIVE CHANGES. NO ACUTE FINDINGS. Head CT 08/21/17 14:40 IMPRESSION: No acute findings. EVIDENCE OF ACUTE STROKE: NO. Chest X-Ray 08/21/17 15:48 IMPRESSION: NO ACUTE RADIOGRAPHIC FINDING IN THE CHEST. NO SIGNIFICANT CHANGE FROM PRIOR STUDY. Fluoroscopy 08/23/17 00:00 IMPRESSION: IMAGE(S) OBTAINED DURING PROCEDURE. Hip X-Ray 08/23/17 00:00 IMPRESSION: IMAGE(S) OBTAINED DURING PROCEDURE. Assessment & Plan - Diagnosis (1) Elevated troponin Is this a current diagnosis for this admission?: Yes Plan: Patient likely has an acute non-STEMI; she is no chest pain she is extremely stable; troponins are in a downward trend Continue Ecotrin Continue Xarelto Continue metoprolol Patient will be scheduled on Monday for Cardiolite stress test (2) Diabetes Qualifiers: Diabetes mellitus type: type 2 Diabetes mellitus complication status: with neurologic complications Diabetes mellitus complication detail: with unspecified neuropathy Diabetes mellitus mcfp insulin use: without mcfp use Qualified Code(s): E11.40 - Type 2 diabetes mellitus with diabetic neuropathy, unspecified Is this a current diagnosis for this admission?: Yes (3) HTN (hypertension) Qualifiers: Hypertension type: essential hypertension Qualified Code(s): I10 - Essential (primary) hypertension Is this a current diagnosis for this admission?: Yes (4) Immunosuppressed status Is this a current diagnosis for this admission?: Yes (5) Intertrochanteric fracture of left hip Qualifiers: Encounter type: subsequent encounter Fracture type: closed Fracture alignment: nondisplaced Is this a current diagnosis for this admission?: Yes (6) Rheumatoid arthritis Qualifiers: Rheumatoid arthritis location: hand Rheumatoid factor presence: unspecified presence Laterality: bilateral Qualified Code(s): M06.9 - Rheumatoid arthritis, unspecified Is this a current diagnosis for this admission?: Yes (7) Low grade fever Is this a current diagnosis for this admission?: Yes Plan: Check UA and culture - Time Time Spent with patient: We will keep patient over the weekend continue the present management Patient may be discharged on Monday to skilled rehab if stress test is negative
[2017-08-25] MEDS ORDERED: POLYETHYLENE GLYCOL 3350 POWDER 17 GM/1 PACKET PO ONE (12:45)
--- NOTE | 2017-08-25 14:01 | PROGRESS NOTE E ---
Progress Note NAME: WENDI ESCOBAR : 1940 AGE: 76Y DATE: 08/24/2017 ROOM: 424 SUBJECTIVE: Note that the patient denies any chest pain or discomfort. There is no arrhythmia seen on the monitor, but the patient's EKG suggests anterior wall ischemia with ST-segment depression. Also, the patient's troponin I went up to 0.9, and subsequently 1.910. The patient claims no shortness of breath, no PND, orthopnea, no anginal symptoms. There is no pedal edema. There is no arrhythmia seen on the monitor. There are no palpitations. There is no dizziness or near syncope or syncope. There are no TIA or CVA symptoms. OBJECTIVE: On examination, the patient is well built and well nourished, in no acute distress. She is afebrile with a temperature of 98.1 degrees Fahrenheit. Pulse is 73 beats per minute. Blood pressure . Peripheral pulses slightly diminished. There are no femoral bruits. The pulses are well felt. There is no pedal edema. There is no DVT or cellulitis. There is no calf tenderness. COMMUNITY RESOURCE OFFICER: The patient is conscious, awake, alert, oriented x3 with no focal deficit. Psychiatric: The patient's judgement and insight are intact. Her affect is normal. 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 shows sinus rhythm, left ventricular hypertrophy, with secondary ST-T wave changes, and also there is 1-mm ST-segment depression on leads V4 to V6. Hence, most likely this [id number] VT. Note, the patient's laboratory data show a white count of 7500, hemoglobin has dropped to 10.3, hematocrit is 30.3, platelet count is 137,000. The patient's sodium is 137.3, potassium 4.2, chloride 106, CO2 is 22. The patient's BUN is 14, creatinine 0.67, GFR is greater than 60. Glucose is 177, calcium is 8.3. IMPRESSION: 1. [id number] VT. 2. Status post left leg fracture, status post surgery, stable. 3. Systolic murmur. This is a "flow murmur." 4. Diabetes mellitus type 2, non-insulin dependent. Blood sugars well controlled. 5. Mild hypertension, blood pressure well controlled. 6. Hyperlipidemia. 7. rheumatoid arthritis. 8. Past history of anemia. Now hemoglobin is stable. RECOMMENDATION: Note that the patient has been started on a beta valeria. Will increase the beta valeria as tolerated. Will get serial EKGs and enzymes. Will discuss with the patient and patient's family as to whether they want a stress test or cardiac catheterization. It all depends on the trend of the troponin-I and the EKG changes. Continue the patient's statin. Continue the patient on aspirin, which is 325 mg p.o. daily. Continue antidiabetic medication. Note, 30 minutes spent on this patient with more than 50% of the time spent on direct patient care. At present the patient is reluctant to be transferred, and hence we will trend the troponin-I, and also we will get serial EKGs. Then we will decide with the patient and patient's family whether they want a cardiac catheterization versus a stress test. Note that elevation of troponin-I postoperatively in hip surgery does a higher than average risk of untoward events. Note, medications were reviewed and discussed with the hospitalist taking care of the patient, and formulated a plan of care. Note, medical decision making was of high complexity. Will follow with you. DICTATING PHYSICIAN: ESE FLORES M.D. [id number] CASIMIRO#: [id number] ID: [id number] JOB#: [id number] ACCT: [id number] cc: >
[2017-08-25] MEDS: SIMVASTATIN 10 MG TABLET PO SCH (21:48)
[2017-08-25] MEDS: BISACODYL 5 MG TABEC PO SCH (21:49)
--- NOTE | 2017-08-26 00:39 | PROGRESS NOTE E ---
Progress Note NAME: WENDI ESCOBAR : 1940 AGE: 76Y DATE: 08/25/2017 ROOM: 424 SUBJECTIVE: The patient denies any chest pain or discomfort. There is no shortness of breath. There is no PND or orthopnea. The patient's surgical site pain is well controlled. There are no palpitations. There is no arrhythmia seen on the monitor. There is no pedal edema. There are no TIA or CVA symptoms. There is no dizziness, near syncope, or syncope. OBJECTIVE: GENERAL: On examination, the patient is well built and well nourished, in no acute distress. VITAL SIGNS: She is afebrile with a temperature of 98.6 degrees Fahrenheit. Pulse is 77 beats per minute. Blood pressure *------*. Respirations are 20 per min. O2 sats are 93% in room air. HEAD: Atraumatic, normocephalic. EYES: Pupils are equal, round, regular, reactive to light and accommodation. Extraocular movements are normal. There is no conjunctival pallor. There is no scleral icterus. EARS: Tympanic membranes are intact. External auditory canals are clear. NOSE: There is no deviated nasal septum. There is no inflammation of the nasal mucous membranes. MOUTH: The mucous membranes of the mouth are moist. Tongue is moist. There are no ulcers. There is no bleeding from the gums. THROAT: There is no redness of the oropharynx. There are no exudates. SKIN: There are no skin rashes. There are no petechiae or ecchymosis. There is no skin lesions. NECK: Supple. There is no JVD. Carotids are equal. There is no bruit. There are is no goiter. There is no lymphadenopathy. Trachea is central. LUNGS: Clear to auscultation and percussion. S1 and S2 are heard. There is no S3 gallop. There is no S4 gallop. There is a systolic murmur at the left sternal border and the apex. There is no rub. ABDOMEN: Soft, nontender. There is no hepatosplenomegaly. Bowel sounds are well heard. There are no tender areas or masses. EXTREMITIES: Femorals are slightly diminished. There are no femoral bruits. Leg pulses are diminished. There is no pedal edema. There is no DVT or cellulitis. There is no calf tenderness. CENTRAL NERVOUS SYSTEM: The patient is conscious, awake, alert, oriented x3, with no focal deficit. PSYCHIATRIC: The patient's judgement and insight are intact. Her affect is normal. MUSCULOSKELETAL EXAM: There is gooseneck deformity of the fingers of both hands. LABORATORY DATA: The patient's glucose is 128. Her troponin-I is trending down to 0.798. EKG: The patient's EKG shows sinus rhythm, 1 PVC, probable LVH with secondary repolarization abnormality. IMPRESSION: 1. [id number] VT. NOTE, TROPONIN-I IS TRENDING DOWN. PATIENT WITHOUT ANY SYMPTOMS. Continue current treatment. The patient is on a beta valeria and aspirin. The patient is also on DVT prophylaxis with Xarelto. Would recheck the patient's troponin-I in the morning, and I will schedule the patient for an IV Lexiscan Cardiolite stress test on Monday, since the patient is asymptomatic. This has been discussed with the patient's son, who is in agreement. I have explained to him that the patient's troponin-I has gone up, and [id number] VT is the diagnosis for now. 2. LEFT FEMORAL FRACTURE, STATUS POST SURGERY. 3. SYSTOLIC MURMUR. THIS IS A FLOW MURMUR. 4. DIABETES MELLITUS TYPE 2, NON-INSULIN DEPENDENT. BLOOD SUGARS ARE WELL CONTROLLED. 5. MILD HYPERTENSION. BLOOD PRESSURE WELL CONTROLLED. 6. HYPERLIPIDEMIA. 7. SEVERE RHEUMATOID ARTHRITIS. 8. PAST HISTORY OF ANEMIA; NOW HEMOGLOBIN IS STABLE. RECOMMENDATION: Continue beta valeria. Continue aspirin. Continue antidiabetic medication. Continue also statins. Note that the patient had 1 dose of metoprolol. This had to be stopped because the patient's heart rate went down to below 59. Will start the patient on metoprolol 12.5 mg p.o. q. 12 hours from tomorrow morning. Will recheck the patient's troponin-I and EKG in the a.m. Note, 30 minutes spent on this patient, with more than 50% of time spent on direct patient care. Also discussed with the hospitalist taking care of the patient and also the patient's son. I will schedule the patient for an IV Lexiscan Cardiolite stress test on Monday. Her medications have been reviewed. Note, medical decision making is highly complex. Will follow with you. DICTATING PHYSICIAN: ESE FLORES M.D. [id number] PHY#: [id number] ID: [id number] JOB#: [id number] ACCT: [id number] cc: >
--- NOTE | 2017-08-26 07:58 | PDOC PROGRESS REPORT ---
Subjective Progress Note for:: 08/26/17 Subjective:: Patient lying in bed comfortably. Continues to complain of pain in her left leg especially with therapy. Denies fever chills or sweats. Denies chest pain or shortness of breath. Reason For Visit: LEFT HIP FRACTURE,CHRONIC ANTICOAGULATION Physical Exam Vital Signs: Temp Pulse Resp BP Pulse Ox 99.1 F 76 18 144/76 H 95 08/26/17 03:39 08/26/17 07:00 08/26/17 03:39 08/26/17 03:39 08/26/17 03:39 Intake & Output 08/25/17 08/26/17 08/27/17 06:59 06:59 06:59 Intake Total 3950 756 Output Total 200 Balance 3750 756 Weight 83.6 kg Musculoskeletal exam: PRESENT: other - Left lower extremity: Dressings clean/dry /intact no erythema or drainage. Moderate thigh swelling. No calf tenderness. Negative Homans. Intact plantar flexion/dorsiflexion. No sensory deficits. No evidence of malrotation or limb length inequality. Results Laboratory Results: 08/24/17 05:39 08/24/17 05:39 08/24/17 08/24/17 08/24/17 05:39 11:52 17:54 Troponin I 0.941 1.910 1.430 08/25/17 08/25/17 08/26/17 00:13 08:32 05:09 Troponin I 1.050 0.798 0.411 Impressions: Cervical Spine CT 08/21/17 14:40 IMPRESSION: CHRONIC DEGENERATIVE CHANGES. NO ACUTE FINDINGS. Head CT 08/21/17 14:40 IMPRESSION: No acute findings. EVIDENCE OF ACUTE STROKE: NO. Chest X-Ray 08/21/17 15:48 IMPRESSION: NO ACUTE RADIOGRAPHIC FINDING IN THE CHEST. NO SIGNIFICANT CHANGE FROM PRIOR STUDY. Fluoroscopy 08/23/17 00:00 IMPRESSION: IMAGE(S) OBTAINED DURING PROCEDURE. Hip X-Ray 08/23/17 00:00 IMPRESSION: IMAGE(S) OBTAINED DURING PROCEDURE. Assessment & Plan - Diagnosis (1) Intertrochanteric fracture of left hip Qualifiers: Encounter type: subsequent encounter Fracture type: closed Fracture alignment: nondisplaced Is this a current diagnosis for this admission?: Yes Plan: Postop day #3 status post IM nail left intertrochanteric fracture #1 physical therapy #2 aspirin for DVT prophylaxis #3 acute blood loss anemia current hematocrit stable at 30.8 #4 discharge planning home health versus [facility] facility
[2017-08-26] MEDS: METOPROLOL TARTRATE 25 MG TABLET PO SCH ×2 (09:44→21:23)
[2017-08-26] MEDS: ASPIRIN 325 MG TABLET, ENT COATED PO SCH (09:44)
[2017-08-26] MEDS: CHOLECALCIFEROL (D3) 1,000 UNIT TABLET PO SCH (09:44)
[2017-08-26] MEDS: FOLIC ACID 1 MG TABLET PO SCH (09:45)
[2017-08-26] MEDS: POLYETHYLENE GLYCOL 3350 POWDER 17 GM/1 PACKET PO SCH (09:45)
--- NOTE | 2017-08-26 10:20 | EKG REPORT ---
SEVERITY:- NORMAL ECG - SINUS RHYTHM LVH WITH SECONDARY ST-T CHANGES : Confirmed by: Abdelrahman Cantu 26-Aug-2017 10:19:58
--- NOTE | 2017-08-26 17:25 | PDOC PROGRESS REPORT ---
Subjective Progress Note for:: 08/26/17 Subjective:: Patient has no chest pain no shortness of breath no abdominal pain nausea vomiting She is alert and awake Reason For Visit: LEFT HIP FRACTURE,CHRONIC ANTICOAGULATION Physical Exam Vital Signs: Temp Pulse Resp BP Pulse Ox 98.4 F 80 16 119/71 95 08/26/17 15:47 08/26/17 15:47 08/26/17 15:47 08/26/17 15:47 08/26/17 15:47 Intake & Output 08/25/17 08/26/17 08/27/17 00:59 00:59 00:59 Intake Total 5460 640 356 Output Total 500 Balance 4960 640 356 Weight 83.6 kg General appearance: PRESENT: no acute distress, well-developed, well-nourished Head exam: PRESENT: atraumatic, normocephalic Eye exam: PRESENT: conjunctiva pink, EOMI, PERRLA. ABSENT: scleral icterus Ear exam: PRESENT: normal external ear exam Mouth exam: PRESENT: moist, tongue midline Neck exam: ABSENT: carotid bruit, JVD, lymphadenopathy, thyromegaly Respiratory exam: PRESENT: clear to auscultation gertrudis. ABSENT: rales, rhonchi, wheezes Cardiovascular exam: PRESENT: RRR. ABSENT: diastolic murmur, rubs, systolic murmur Pulses: PRESENT: normal dorsalis pedis pul Vascular exam: PRESENT: normal capillary refill GI/Abdominal exam: PRESENT: normal bowel sounds, soft. ABSENT: distended, guarding, mass, organolmegaly, rebound, tenderness Rectal exam: PRESENT: deferred Extremities exam: PRESENT: full ROM. ABSENT: calf tenderness, clubbing, pedal edema Neurological exam: PRESENT: alert, awake, oriented to person, oriented to place , oriented to time, oriented to situation, CN II-XII grossly intact. ABSENT: motor sensory deficit Psychiatric exam: PRESENT: appropriate affect, normal mood. ABSENT: homicidal ideation, suicidal ideation Skin exam: PRESENT: dry, intact, warm. ABSENT: cyanosis, rash Results Laboratory Results: 08/24/17 05:39 08/24/17 05:39 08/24/17 08/24/17 08/24/17 05:39 11:52 17:54 Troponin I 0.941 1.910 1.430 08/25/17 08/25/1718 00:13 08:32 05:09 Troponin I 1.050 0.798 0.411 Impressions: Cervical Spine CT 08/21/17 14:40 IMPRESSION: CHRONIC DEGENERATIVE CHANGES. NO ACUTE FINDINGS. Head CT 08/21/17 14:40 IMPRESSION: No acute findings. EVIDENCE OF ACUTE STROKE: NO. Chest X-Ray 08/21/17 15:48 IMPRESSION: NO ACUTE RADIOGRAPHIC FINDING IN THE CHEST. NO SIGNIFICANT CHANGE FROM PRIOR STUDY. Fluoroscopy 08/23/17 00:00 IMPRESSION: IMAGE(S) OBTAINED DURING PROCEDURE. Hip X-Ray 08/23/17 00:00 IMPRESSION: IMAGE(S) OBTAINED DURING PROCEDURE. Assessment & Plan - Diagnosis (1) Elevated troponin Is this a current diagnosis for this admission?: Yes Plan: Patient likely has an acute non-STEMI; she is no chest pain she is extremely stable; troponins are in a downward trend Continue Ecotrin Continue Xarelto Continue metoprolol Patient will be scheduled on Monday for Cardiolite stress test (2) Diabetes Qualifiers: Diabetes mellitus type: type 2 Diabetes mellitus complication status: with neurologic complications Diabetes mellitus complication detail: with unspecified neuropathy Diabetes mellitus manager intermediate insulin use: without manager intermediate use Qualified Code(s): E11.40 - Type 2 diabetes mellitus with diabetic neuropathy, unspecified Is this a current diagnosis for this admission?: Yes (3) HTN (hypertension) Qualifiers: Hypertension type: essential hypertension Qualified Code(s): I10 - Essential (primary) hypertension Is this a current diagnosis for this admission?: Yes (4) Immunosuppressed status Is this a current diagnosis for this admission?: Yes (5) Intertrochanteric fracture of left hip Qualifiers: Encounter type: subsequent encounter Fracture type: closed Fracture alignment: nondisplaced Is this a current diagnosis for this admission?: Yes (6) Rheumatoid arthritis Qualifiers: Rheumatoid arthritis location: hand Rheumatoid factor presence: unspecified presence Laterality: bilateral Qualified Code(s): M06.9 - Rheumatoid arthritis, unspecified Is this a current diagnosis for this admission?: Yes (7) Low grade fever Is this a current diagnosis for this admission?: Yes Plan: Check UA and culture Patient has been afebrile in the last 24 hours - Time Time Spent with patient: Patient is scheduled for a stress test on Monday she may be discharged if the stress test is negative to short-term rehab or home with physical therapy Time Spent with patient: 25-34 minutes
--- NOTE | 2017-08-26 19:19 | PROGRESS NOTE E ---
Progress Note NAME: WENDI ESCOBAR : 1940 AGE: 76Y DATE: 08/26/2017 ROOM: 424 SUBJECTIVE: The patient denies any chest pain or discomfort. There is no arrhythmia seen. There are no palpitations. There is no PND, orthopnea. Her pain at the operative site is well-controlled with current medication. There is no DVT or cellulitis. There is no pedal edema. There are no TIA or CVA symptoms. There are no anginal symptoms. There are no palpitations. There is no dizziness or near syncope or syncope. OBJECTIVE: GENERAL: On examination the patient is of well-built and well-nourished in no acute distress. VITAL SIGNS: She is afebrile with a temperature of 98.4 degrees Fahrenheit orally, pulse is 75 beats per minute, blood pressure 149/55, respirations are 16 per minute, O2 saturations are 96% on room air. HEENT: Head is atraumatic, normocephalic. Eyes: Pupils are equal, round, regular, reactive to light and accommodation. Extraocular movements are normal. There is no conjunctival pallor. There is no scleral icterus. Ears: Tympanic membranes are intact, external auditory canals are clear. Nose: There is no deviated nasal septum. There is no inflammation of the nasal mucous membrane. Mouth: Mucous membranes of the mouth are moist. Tongue is moist. There are no ulcers. There is no bleeding from the gums. Throat: There is no redness of the oropharynx, there are no exudates. SKIN: There are no skin rashes. There is no petechiae or ecchymosis. There are no skin lesions. NECK: Supple. There is no JVD. Carotids are equal. There is no bruit. There is no goiter. There is no lymphadenopathy. Trachea is central. LUNGS: Clear to auscultation and percussion. HEART: S1, S2 is heard. There is no S3 gallop. There is no S4 gallop. There is a systolic murmur in the left sternal border and the apex. There is no rub. ABDOMEN: Soft, nontender. There is no hepatosplenomegaly. Bowel sounds are well heard. There are no tenderness areas or masses. EXTREMITIES: Femorals are slightly diminished. There are no femoral bruits. Leg pulses are diminished. There is no DVT or cellulitis. There is no calf tenderness. There is no pedal edema. CENTRAL NERVOUS SYSTEM: The patient is conscious, awake, alert, oriented x3 with no focal deficit. PSYCHIATRIC: The patient's judgment and insight are intact. Her affect is normal. 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 DIAGNOSTIC STUDIES: Note that the patient's EKG shows sinus rhythm, no acute changes, in fact within normal limits. The patient's troponin I has come down to 0.411. Her glucose is 156. IMPRESSION: 1. NON-ST ELEVATION UT. TROPONIN IS TENDING DOWN. As mentioned earlier we will schedule the patient for IV Lexiscan Cardiolite stress test on Monday. We will recheck the patient's troponin I and also we will recheck the patient's hemoglobin to make sure that it is not coming down. 2. LEFT FEMORAL FRACTURE, STATUS POST SURGERY. 3. SYSTOLIC MURMUR, THIS IS A FLOW MURMUR. 4. DIABETES MELLITUS TYPE 2, NON-INSULIN DEPENDENT. Blood sugar are well-controlled. 5. MILD HYPERTENSION. Blood pressure well-controlled. 6. HYPERLIPIDEMIA. 7. SEVERE RHEUMATOID ARTHRITIS. 8. PAST HISTORY OF ANEMIA, NOW HEMOGLOBIN IS STABLE. RECOMMENDATION: Continue beta valeria. Note that the patient is tolerating the beta valeria at 25 mg p.o. q.12 hours. Continue aspirin and continue other current medications. Continue antidiabetic medication. Continue statin. TIME SPENT: Note 30 minutes spent on this patient with more than 50% of the time spent on direct patient care. The patient's EKGs have been discussed with the patient and also the trending of the troponin has been discussed with her. Medications have been reviewed and also discussed with the other caregiving providers on the case. Note medical decision making his highly complex in view of the patient's troponin I elevation without any chest pain of the patient. Although she is a diabetic she may not have chest pain, but the patient is hemodynamically stable. We will follow with you. DICTATING PHYSICIAN: ESE FLORES M.D. [id number] PHY#: [id number] ID: [id number] JOB#: [id number] ACCT: [id number] cc: >
[2017-08-26] MEDS: INSULIN LISPRO 100 UNIT/ML 3 ML VIAL SUBCUT PRN (21:23)
[2017-08-26] MEDS: BISACODYL 5 MG TABEC PO SCH (21:23)
[2017-08-26] MEDS: SIMVASTATIN 10 MG TABLET PO SCH (21:23)
[2017-08-27 09:17] LABS: MEAN CORPUSCULAR HGB CONC 33.4 g/dL (32.0-36.0); MEAN CORPUSCULAR VOLUME 90 fl (80-97); PLATELET COUNT 233 10^3/uL (150-450); RED BLOOD COUNT 3.68 10^6/uL (3.72-5.28); WHITE BLOOD COUNT 7.1 10^3/uL (4.0-10.5)
[2017-08-27] MEDS: ASPIRIN 325 MG TABLET, ENT COATED PO SCH (11:21)
[2017-08-27] MEDS: FOLIC ACID 1 MG TABLET PO SCH (11:21)
[2017-08-27] MEDS: CHOLECALCIFEROL (D3) 1,000 UNIT TABLET PO SCH (11:21)
[2017-08-27] MEDS: POLYETHYLENE GLYCOL 3350 POWDER 17 GM/1 PACKET PO SCH (11:22)
[2017-08-27] MEDS: METOPROLOL TARTRATE 25 MG TABLET PO SCH ×2 (11:22→21:29)
--- NOTE | 2017-08-27 16:04 | PDOC PROGRESS REPORT ---
Subjective Progress Note for:: 08/27/17 Subjective:: The patient is resting in her bed. She states that she is feeling well and has no complaints. She currently is waiting placement for subacute rehabilitation due to her recent hip fracture. She states that she does not really want to go to rehab but does understand the need. Currently she is awaiting a bed offer. Overall she denies fever chills. No chest pain, shortness of breath or heart palpitations. No nausea vomiting or diarrhea. No dysuria, frequency or hematuria. She states her pain is well-controlled until she tries to move. Reason For Visit: LEFT HIP FRACTURE,CHRONIC ANTICOAGULATION Physical Exam Vital Signs: Temp Pulse Resp BP Pulse Ox 98.4 F 82 18 132/59 H 96 08/27/17 11:55 08/27/17 14:00 08/27/17 11:55 08/27/17 11:55 08/27/17 11:55 Intake & Output 08/26/17 08/27/17 08/28/17 06:59 06:59 06:59 Intake Total 756 1735 3 Balance 756 1735 3 Weight 83.6 kg 82.3 kg General appearance: PRESENT: no acute distress, well-developed, well-nourished Head exam: PRESENT: atraumatic, normocephalic Mouth exam: PRESENT: moist, tongue midline Respiratory exam: PRESENT: clear to auscultation gertrudis. ABSENT: rales, rhonchi, wheezes Cardiovascular exam: PRESENT: RRR. ABSENT: diastolic murmur, rubs, systolic murmur GI/Abdominal exam: PRESENT: normal bowel sounds, soft. ABSENT: distended, guarding, mass, organolmegaly, rebound, tenderness Rectal exam: PRESENT: deferred Extremities exam: PRESENT: full ROM. ABSENT: calf tenderness, clubbing, pedal edema Musculoskeletal exam: ABSENT: ambulatory Neurological exam: PRESENT: alert, awake, oriented to person, oriented to place , oriented to time, oriented to situation, CN II-XII grossly intact. ABSENT: motor sensory deficit Skin exam: PRESENT: dry, intact, warm, other - Incision is healing well. ABSENT : cyanosis, rash Results Laboratory Results: 08/27/17 08:40 08/24/17 05:39 08/27/17 08:40 WBC 7.1 RBC 3.68 L Hgb 11.0 L Hct 33.0 L MCV 90 MCH 30.0 MCHC 33.4 RDW 15.0 H Plt Count 233 08/24/17 08/24/17 08/24/17 05:39 11:52 17:54 Troponin I 0.941 1.910 1.430 08/25/17 08/25/17 08/26/17 00:13 08:32 05:09 Troponin I 1.050 0.798 0.411 08/27/17 11:12 Troponin I 0.206 Impressions: Cervical Spine CT 08/21/17 14:40 IMPRESSION: CHRONIC DEGENERATIVE CHANGES. NO ACUTE FINDINGS. Head CT 08/21/17 14:40 IMPRESSION: No acute findings. EVIDENCE OF ACUTE STROKE: NO. Chest X-Ray 08/21/17 15:48 IMPRESSION: NO ACUTE RADIOGRAPHIC FINDING IN THE CHEST. NO SIGNIFICANT CHANGE FROM PRIOR STUDY. Fluoroscopy 08/23/17 00:00 IMPRESSION: IMAGE(S) OBTAINED DURING PROCEDURE. Hip X-Ray 08/23/17 00:00 IMPRESSION: IMAGE(S) OBTAINED DURING PROCEDURE. Assessment & Plan - Diagnosis (1) Intertrochanteric fracture of left hip Qualifiers: Encounter type: subsequent encounter Fracture type: closed Fracture alignment: nondisplaced Is this a current diagnosis for this admission?: Yes Plan: Status post repair. She is currently waiting on subacute rehabilitation. (2) Rheumatoid arthritis Qualifiers: Rheumatoid arthritis location: hand Rheumatoid factor presence: unspecified presence Laterality: bilateral Qualified Code(s): M06.9 - Rheumatoid arthritis, unspecified Is this a current diagnosis for this admission?: Yes Plan: Currently her methotrexate is on hold. We will restart this at the time of discharge. (3) Immunosuppressed status Is this a current diagnosis for this admission?: Yes Plan: Secondary to long-term treatment for her rheumatoid arthritis. Stable. No evidence of infection at this point. (4) Diabetes Qualifiers: Diabetes mellitus type: type 2 Diabetes mellitus complication status: with neurologic complications Diabetes mellitus complication detail: with unspecified neuropathy Diabetes mellitus intermission coordinator insulin use: without intermission coordinator use Qualified Code(s): E11.40 - Type 2 diabetes mellitus with diabetic neuropathy, unspecified Is this a current diagnosis for this admission?: Yes Plan: Adequately controlled at this point. (5) HTN (hypertension) Qualifiers: Hypertension type: essential hypertension Qualified Code(s): I10 - Essential (primary) hypertension Is this a current diagnosis for this admission?: Yes Plan: Continue metoprolol (6) Elevated troponin Is this a current diagnosis for this admission?: Yes Plan: The patient had a type I myocardial infarction likely due to the stress from her hip fracture. No further workup at this point. (7) Low grade fever Is this a current diagnosis for this admission?: Yes Plan: The patient had a low-grade fever yesterday on one occasion. This is not since been repeated. No evidence of infection. No further fever since that time. - Time Time Spent with patient: 25-34 minutes - Inpatient Certification Medical Necessity: Other - Inpatient hospitalization remains necessary for disposition. The patient overall is doing well and is currently waiting on placement for subacute rehabilitation. She will be transferred in stable for discharge as soon as a bed is found.
--- NOTE | 2017-08-27 16:54 | PROGRESS NOTE E ---
Progress Note NAME: WENDI ESCOBAR : 1940 AGE: 76Y DATE: 08/27/2017 ROOM: 424 SUBJECTIVE: The patient is lying in bed with no complaints. She denies any chest pain or discomfort. There is no PND, orthopnea. There are no palpitations. There is no arrhythmia seen on the monitor. There is no pedal edema. There is no dizziness, near syncope, or syncope. There are no TIA or CVA symptoms. OBJECTIVE: GENERAL: On examination the patient is well-built and well-nourished in no acute distress. VITAL SIGNS: She is afebrile with a temperature of 98.4 degrees Fahrenheit, pulse of 79 beats per minute, blood pressure 132/59, respirations are 18 per minute, O2 saturations are 96% on room air. HEENT: Head is atraumatic, normocephalic. Eyes: Pupils are equal, round, regular, reactive to light and accommodation. Extraocular movements are normal. There is no conjunctival pallor. There is no scleral icterus. Ears: Tympanic membranes are intact, external auditory canals are clear. Nose: There is no deviated nasal septum. There is no inflammation of the nasal mucous membrane. Mouth: Mucous membranes of the mouth are moist. Tongue is moist. There are no ulcers. There is no bleeding from the gums. Throat: There is no redness of the oropharynx, there are no exudates. SKIN: There are no skin rashes. There is no petechiae or ecchymosis. There are no skin lesions. NECK: Supple. There is no JVD. Carotids are equal. There is no bruit. There is no goiter. There is no lymphadenopathy. There is no accessory muscle of respiration in use. Trachea is central. LUNGS: Clear to auscultation and percussion. There is no chest wall tenderness. HEART: S1, S2 is heard. There is no S3 gallop. There is no S4 gallop. There is a systolic murmur in the left sternal border and the apex. There is no rub. ABDOMEN: Soft, nontender. There is no hepatosplenomegaly. Bowel sounds are well heard. There are no tenderness areas or masses. EXTREMITIES: Femorals are slightly diminished. There are no femoral bruits. Leg pulses are diminished. There is no DVT or cellulitis. There is no cyanosis or clubbing. There is no calf tenderness. There is no pedal edema. CENTRAL NERVOUS SYSTEM: The patient is conscious, awake, alert, oriented x3 with no focal deficit. 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 DIAGNOSTIC STUDIES: The patient's white count is 7100, hemoglobin is 7, hematocrit is *------*, platelet count is 233,000. The patient's troponin I has further trended down to 0.206. The patient's glucose is 143. IMPRESSION: 1. NON-ST ELEVATION MA. TROPONIN IS TENDING DOWN. The patient will be setup for IV Lexiscan Cardiolite stress test tomorrow morning. 2. LEFT FEMORAL NECK FRACTURE, STATUS POST SURGERY. Postop pain is well-controlled with current medication. 3. SYSTOLIC MURMUR, THIS IS A FLOW MURMUR. 4. DIABETES MELLITUS TYPE 2, NON-INSULIN DEPENDENT. Blood sugars are well-controlled. 5. MILD HYPERTENSION. Blood pressure well-controlled. 6. HYPERLIPIDEMIA. 7. SEVERE RHEUMATOID ARTHRITIS. 8. PAST HISTORY OF ANEMIA, NOW HEMOGLOBIN IS STABLE. RECOMMENDATION: Note, continue the patient's beta valeria. Continue the patient's aspirin and continue her other current medications. Continue antidiabetic medication. TIME SPENT: Note 30 minutes spent on this patient with more than 50% of the time spent on direct patient care. I have explained the process and the performance of IV Lexiscan Cardiolite stress test with the patient, including the complications that could not occur. The patient's medications have been reviewed and the plan of care has been discussed with the hospitalist taking care of the patient. Note medical decision making is still of highly complexity in view of the need for a stress test. We will follow with you. DICTATING PHYSICIAN: ESE FLORES M.D. [id number] PHY#: [id number] ID: [id number] JOB#: [id number] ACCT: [id number] cc: >
[2017-08-27] MEDS: SIMVASTATIN 10 MG TABLET PO SCH (21:39)
[2017-08-27] MEDS: BISACODYL 5 MG TABEC PO SCH (21:39)
[2017-08-28 06:46] LABS: ANION GAP 8 (5-19); BLOOD UREA NITROGEN 18 mg/dL (7-20); CALCIUM 8.9 mg/dL (8.4-10.2); CARBON DIOXIDE 26 mmol/L (22-30); CHLORIDE 104 mmol/L (98-107); GLUCOSE 132 mg/dL (75-110); MAGNESIUM 1.8 mg/dL (1.6-2.3); POTASSIUM 4.3 mmol/L (3.6-5.0)
[2017-08-28 08:05] LABS: HEMATOCRIT 35.4 % (36.0-47.0); HEMOGLOBIN 11.8 g/dL (12.0-15.5); MEAN CORPUSCULAR HEMOGLOBIN 30.3 pg (27.0-33.4); MEAN CORPUSCULAR HGB CONC 33.5 g/dL (32.0-36.0); MEAN CORPUSCULAR VOLUME 90 fl (80-97); PLATELET COUNT 281 10^3/uL (150-450); RED BLOOD COUNT 3.91 10^6/uL (3.72-5.28); RED CELL DISTRIBUTION WIDTH 14.8 % (11.5-14.0); WHITE BLOOD COUNT 8.3 10^3/uL (4.0-10.5)
[2017-08-28] MEDS: OXYCODONE HCL IR 5 MG TABLET PO PRN ×2 (08:06→14:59)
--- NOTE | 2017-08-28 11:43 | PDOC PROGRESS REPORT ---
Subjective Progress Note for:: 08/28/17 Subjective:: The patient is a 76-year-old female who suffered a fall at home. She had a left intertrochanteric femoral neck fracture was brought to the hospital after a fall at home. She was found to have a left intertrochanteric femoral neck fracture. She was admitted to the hospital and evaluated by orthopedic surgery and cardiology. She was found to be an acceptable risk for surgery and went to the operating room on August 23, 2017 for repair. Her hospitalization has been complicated by mild elevation of her troponins. Her troponin peaked at 1.9. Cardiology has followed her closely during this hospitalization and this morning she is going to undergo a Cardiolite stress test. In regards to her disposition, she has been referred out for subacute rehabilitation but I am not aware that she has a bed offer as of yet. Today when I saw the patient it was just prior to her stress test. She states that she is feeling well and that her pain is adequately controlled and when she tries to move. She denies fever chills. No chest pain, shortness of breath or cough. She has not had any heart palpitations that she is aware of. No nausea, vomiting or diarrhea. She continues to have a Lopez catheter in place. Reason For Visit: LEFT HIP FRACTURE,CHRONIC ANTICOAGULATION Physical Exam Vital Signs: Temp Pulse Resp BP Pulse Ox 98.4 F 98 16 166/70 H 97 08/28/17 07:59 08/28/17 07:59 08/28/17 07:59 08/28/17 07:59 08/28/17 07:59 Intake & Output 08/27/17 08/28/17 08/29/17 06:59 06:59 06:59 Intake Total 1735 1486 Balance 1735 1486 Weight 82.3 kg 82.4 kg General appearance: PRESENT: no acute distress, well-developed, well-nourished Head exam: PRESENT: atraumatic, normocephalic Mouth exam: PRESENT: moist, tongue midline Respiratory exam: PRESENT: clear to auscultation gertrudis. ABSENT: rales, rhonchi, wheezes Cardiovascular exam: PRESENT: RRR, systolic murmur. ABSENT: diastolic murmur, rubs GI/Abdominal exam: PRESENT: normal bowel sounds, soft. ABSENT: distended, guarding, mass, organolmegaly, rebound, tenderness Rectal exam: PRESENT: deferred Extremities exam: PRESENT: full ROM. ABSENT: calf tenderness, clubbing, pedal edema Neurological exam: PRESENT: alert, awake, oriented to person, oriented to place , oriented to time, oriented to situation, CN II-XII grossly intact. ABSENT: motor sensory deficit Psychiatric exam: PRESENT: appropriate affect, normal mood. ABSENT: homicidal ideation, suicidal ideation Skin exam: PRESENT: dry, intact, warm, other - Incision is healing well. ABSENT : cyanosis, rash Results Laboratory Results: 08/28/17 06:06 08/28/17 06:06 08/28/17 08/28/17 06:06 06:06 WBC 8.3 RBC 3.91 Hgb 11.8 L Hct 35.4 L MCV 90 MCH 30.3 MCHC 33.5 RDW 14.8 H Plt Count 281 Sodium 138.0 Potassium 4.3 Chloride 104 Carbon Dioxide 26 Anion Gap 8 BUN 18 Creatinine 0.60 Est GFR ( Amer) > 60 Est GFR (Non-Af Amer) > 60 Glucose 132 H Calcium 8.9 Magnesium 1.8 08/24/17 08/24/17 08/24/17 05:39 11:52 17:54 Troponin I 0.941 1.910 1.430 08/25/17 08/25/17 08/26/17 00:13 08:32 05:09 Troponin I 1.050 0.798 0.411 08/27/17 11:12 Troponin I 0.206 Impressions: Cervical Spine CT 08/21/17 14:40 IMPRESSION: CHRONIC DEGENERATIVE CHANGES. NO ACUTE FINDINGS. Head CT 08/21/17 14:40 IMPRESSION: No acute findings. EVIDENCE OF ACUTE STROKE: NO. Chest X-Ray 08/21/17 15:48 IMPRESSION: NO ACUTE RADIOGRAPHIC FINDING IN THE CHEST. NO SIGNIFICANT CHANGE FROM PRIOR STUDY. Fluoroscopy 08/23/17 00:00 IMPRESSION: IMAGE(S) OBTAINED DURING PROCEDURE. Hip X-Ray 08/23/17 00:00 IMPRESSION: IMAGE(S) OBTAINED DURING PROCEDURE. Assessment & Plan - Diagnosis (1) Intertrochanteric fracture of left hip Qualifiers: Encounter type: subsequent encounter Fracture type: closed Fracture alignment: nondisplaced Is this a current diagnosis for this admission?: Yes Plan: Status post repair. She is currently waiting on subacute rehabilitation. She has been referred out but does not yet have a bed offer. (2) Elevated troponin Is this a current diagnosis for this admission?: Yes Plan: The patient is undergoing a Cardiolite stress test today. Dr. Wang is following. We certainly appreciate his assistance. (3) Rheumatoid arthritis Qualifiers: Rheumatoid arthritis location: hand Rheumatoid factor presence: unspecified presence Laterality: bilateral Qualified Code(s): M06.9 - Rheumatoid arthritis, unspecified Is this a current diagnosis for this admission?: Yes Plan: Currently her methotrexate is on hold. We will restart this at the time of discharge. (4) Immunosuppressed status Is this a current diagnosis for this admission?: Yes Plan: Secondary to long-term treatment for her rheumatoid arthritis. Stable. No evidence of infection at this point. (5) Diabetes Qualifiers: Diabetes mellitus type: type 2 Diabetes mellitus complication status: with neurologic complications Diabetes mellitus complication detail: with unspecified neuropathy Diabetes mellitus correction insulin use: without correction use Qualified Code(s): E11.40 - Type 2 diabetes mellitus with diabetic neuropathy, unspecified Is this a current diagnosis for this admission?: Yes Plan: Adequately controlled at this point. (6) HTN (hypertension) Qualifiers: Hypertension type: essential hypertension Qualified Code(s): I10 - Essential (primary) hypertension Is this a current diagnosis for this admission?: Yes Plan: Continue metoprolol (7) Low grade fever Is this a current diagnosis for this admission?: Yes Plan: This was 2 days ago. No further fever since that time. No evidence of infection - Time Time Spent with patient: 25-34 minutes - Inpatient Certification Medical Necessity: Other - Inpatient hospitalization remains necessary. Today the patient is undergoing a Cardiolite stress test. If this test is adequate she will be stable for transfer to a senior living facility for subacute rehabilitation as soon as a bed is found. The discharge planners are working on this.
[2017-08-28] MEDS: POLYETHYLENE GLYCOL 3350 POWDER 17 GM/1 PACKET PO SCH (12:42)
[2017-08-28] MEDS: FOLIC ACID 1 MG TABLET PO SCH (12:43)
[2017-08-28] MEDS: CHOLECALCIFEROL (D3) 1,000 UNIT TABLET PO SCH (12:43)
[2017-08-28] MEDS: ASPIRIN 325 MG TABLET, ENT COATED PO SCH (12:43)
[2017-08-28] MEDS: METOPROLOL TARTRATE 25 MG TABLET PO SCH ×2 (12:44→21:49)
[2017-08-28] MEDS ORDERED: REGADENOSON INJ 0.4 MG/5 ML DISP.SYRIN IV ONE (14:24)
[2017-08-28] MEDS ORDERED: MORPHINE SULFATE 10 MG/ML INJ IV ONE (14:40)
--- NOTE | 2017-08-28 21:30 | DRAGON STRESS TEST REPORT ---
Intravenous Lexiscan Cardiolite stress test using single photon emmision computerized tomography. Date of procedure: 08/28/2017. Ordering Provider: Dr. Alla Wang. Patient's status: In Patient Indication: Patient with postoperative elevation of troponin I suggestive of non -ST elevation [place].. Coronary risk factors: Age, diabetes mellitus, hypertension, and dyslipidemia. Resting EKG: Sinus Rhythm. T inversion in leads I and lead aVL Stress EKG: No changes of ischemia. Reason for termination: Protocol. Conclusions: Normal EKG and hemodynamic response to IV Lexiscan. Nuclear data: At rest the patient was given 12.80 millicuries of technetium 99m sestamibi injected intravenously. As per protocol rest non gated SPECT images were obtained. Subsequently the patient was given intravenous Lexiscan at a dose of 0.4 mg in 5 mL intravenously, followed by flush with normal saline. Subsequently the stress dose of 38.1 millicuries of technetium 99m sestamibi was injected intravenously. As per protocol stress gated images were obtained. Nuclear interpretation: Note that the first scan done after the stress images were obtained showed that there was very significant motion artifact and liver and bowel contamination artifact. This was of poor quality. Hence the patient was brought back down and had a repeat scan which is in the PAC 'S system. This was used for interpretation. Review of images showed that all segments of the myocardium had most likely normal perfusion at rest, and normal perfusion post stress with IV Lexiscan. All segments of the myocardium had normal motion, contraction, and thickening by gated study. T. I D. ratio was normal at 1.15. Computer read rest, and stress left ventricular ejection fraction were 63 %, and %, respectively. Visually both the stress and rest ejection fractions were normal, and greater than 60 %. Conclusion: 1. There is most likely no scintigraphic evidence of Lexiscan induced myocardial ischemia. 2. There is no scintigraphic evidence of myocardial infarction/sca Recommendations: 1. This is overall not very good study. Hence would treat the patient with statins if the lipids are elevated, aspirin beta valeria and nitrates, and aggressive risk factor modification, and treating the underlying co- morbidities. 2. The patient will need close cardiology follow-up. This has been discussed with the attending physician and also the patient. LOUISA
[2017-08-28] MEDS: BISACODYL 5 MG TABEC PO SCH (21:48)
[2017-08-28] MEDS: SIMVASTATIN 10 MG TABLET PO SCH (21:49)
--- NOTE | 2017-08-28 22:09 | PROGRESS NOTE E ---
Progress Note NAME: WENDI ESCOBAR : 1940 AGE: 76Y DATE: 08/28/2017 ROOM: 424 SUBJECTIVE: Note that the patient denies any chest pain or discomfort. There is no PND, orthopnea. She still has pain at the site of her left hip fracture of the femoral neck. She denies any angina symptoms. There is no PND, orthopnea, palpitations, dizziness, near syncope, or syncope. There are no TIA or CVA symptoms. There is no flare up of her rheumatoid arthritis. Note that the patient did undergo a Lexiscan Cardiolite stress today. Please report below. OBJECTIVE: GENERAL: On examination the patient is well-built and well-nourished, at present in no acute distress. VITAL SIGNS: She is afebrile with a temperature of 98.4 degrees Fahrenheit orally, pulse of 87 beats per minute, blood pressure 115/49, respirations 16 per minute, O2 saturations are 96% on room air. HEENT: Head is atraumatic, normocephalic. Eyes: Pupils are equal, round, regular, reactive to light and accommodation. Extraocular movements are normal. There is no conjunctival pallor. There is no scleral icterus. Ears: Tympanic membranes are intact, external auditory canals are clear. Nose: There is no deviated nasal septum. There is no inflammation of the nasal mucous membrane. Mouth: Mucous membranes of the mouth are moist. Tongue is moist. There are no ulcers. There is no bleeding from the gums. Throat: There is no redness of the oropharynx, there are no exudates. SKIN: There are no skin rashes. There is no petechiae or ecchymosis. There are no skin lesions. MUSCULOSKELETAL: There is gooseneck deformity of the fingers of hands secondary to rheumatoid arthritis. NECK: Supple. There is no JVD. Carotids are equal. There is no bruit. There is no goiter. There is no lymphadenopathy. Trachea is central. LUNGS: Clear to auscultation and percussion. There is no chest wall tenderness. HEART: S1, S2 is heard. There is no S3 gallop. There is no S4 gallop. There is a systolic murmur in the left sternal border and the apex. There is no rub. ABDOMEN: Soft, nontender. There is no hepatosplenomegaly. Bowel sounds are well heard. There are no tenderness areas or masses. EXTREMITIES: Femorals are slightly diminished. There are no femoral bruits. Leg pulses are diminished. There is no DVT or cellulitis. There is no cyanosis or clubbing. There is no calf tenderness. There is no pedal edema. CENTRAL NERVOUS SYSTEM: The patient is conscious, awake, alert, oriented x3 with no focal deficit. PSYCHIATRIC: The patient's judgment and insight are intact. Her affect is normal. DIAGNOSTIC STUDIES: The patient's white count is 8300, hemoglobin is 11.8, hematocrit is 35.4, platelet count is 281,000. The patient's sodium is 138.0, potassium 4.3, chloride 104, CO2 is 26. The patient's BUN is 18, creatinine 0.60, GFR is greater than 60. Her glucose is 132 and her magnesium is 1.8. Her calcium is 8.9. Note that the patient underwent an IV Lexiscan Cardiolite stress test, but due to the pain the first set of stress images were of very poor quality with severe motion artifact and also liver and bowel contamination artifact. Hence, the scan was repeated and the scan is on the PACS. This does not show any reversible ischemia or scar. Most likely the patient had a non-ST elevation MD, which is too small to be picked up by the stress test. This has been discussed with the patient. IMPRESSION: 1. NON-ST ELEVATION MD. TROPONIN IS TRENDING DOWN. Note the stress is negative, most likely this is a very small area that has not been picked up by the stress test, but would assume that the patient has underlying coronary artery disease and continue the patient's beta valeria, aspirin. Would also add topical nitrates from the warning. 2. LEFT FEMORAL NECK FRACTURE, STATUS POST SURGERY. Postop pain has bothered the patient today. 3. SYSTOLIC MURMUR, WHICH IS A FLOW MURMUR. 4. DIABETES MELLITUS TYPE 2, NON-INSULIN DEPENDENT. Blood sugars are well-controlled. 5. MILD HYPERTENSION. Blood pressure well-controlled. 6. HYPERLIPIDEMIA. Would recheck the patient's liver function test and her lipid panels in the morning to see if she needs any restarting of statins or whether she can control her lipids with diet alone. 7. SEVERE RHEUMATOID ARTHRITIS. 8. PAST HISTORY OF ANEMIA, NOW HEMOGLOBIN IS STABLE. RECOMMENDATIONS: As mentioned earlier. TIME SPENT: Thirty minutes spent on this patient with more than 50% of the time spent on direct patient care. The patient's stress test has been discussed with the patient. The patient's medications reviewed and medications added in the form of nitrates topically. The cardiac status at present seems to be stable. I have discussed with the attending physician, will sign off the case. The patient has my cell phone number and she will call me when she gets discharged from the rehab facility to follow up with me cardiac awad. We will follow the patient closely. Note medical decision making at present is of high complexity. Will sign off the case. DICTATING PHYSICIAN: ESE FLORES M.D. [id number] CASIMIRO#: [id number] ID: [id number] JOB#: [id number] ACCT: [id number] cc: >
[2017-08-29 06:17] LABS: ALANINE AMINOTRANSFERASE 23 U/L (9-52); ALBUMIN 3.1 g/dL (3.5-5.0); ALKALINE PHOSPHATASE 83 U/L (38-126); ANION GAP 9 (5-19); ASPARTATE AMINO TRANSFERASE 15 U/L (14-36); BILIRUBIN,DIRECT 0.1 mg/dL (0.0-0.4); BILIRUBIN,TOTAL 0.6 mg/dL (0.2-1.3); BLOOD UREA NITROGEN 25 mg/dL (7-20); CALCIUM 8.7 mg/dL (8.4-10.2); CARBON DIOXIDE 24 mmol/L (22-30); CHLORIDE 105 mmol/L (98-107); GLUCOSE 131 mg/dL (75-110); MAGNESIUM 1.9 mg/dL (1.6-2.3); POTASSIUM 4.4 mmol/L (3.6-5.0); SODIUM 137.5 mmol/L (137-145); TOTAL PROTEIN 5.5 g/dL (6.3-8.2); TRIGLYCERIDES 110 mg/dL (<150)
[2017-08-29 06:28] LABS: DIRECT LDL 76 mg/dL (<100)
--- NOTE | 2017-08-29 06:47 | PDOC PROGRESS REPORT ---
Subjective Progress Note for:: 08/29/17 Subjective:: 76-year-old white female 7 days status post IM nail placement for intertrochanteric femoral fracture of left hip. Patient refuses to work with physical therapy and has pain that is apparently out of proportion to her postoperative state and to palpation. She was informed she needs to continue to work with physical therapy and move from her bed at least to the chair at the bedside to prevent postoperative complications including pneumonia and bedsores. Reason For Visit: LEFT HIP FRACTURE,CHRONIC ANTICOAGULATION Physical Exam Vital Signs: Temp Pulse Resp BP Pulse Ox 36.7 C 82 17 130/60 H 94 08/29/17 04:48 08/29/17 04:48 08/29/17 04:48 08/29/17 04:48 08/29/17 04:48 Intake & Output 08/27/17 08/28/17 08/29/17 06:59 06:59 06:59 Intake Total 1735 1486 946 Balance 1735 1486 946 Weight 82.3 kg 82.4 kg 81.7 kg General appearance: PRESENT: no acute distress, well-developed, well-nourished Head exam: PRESENT: atraumatic, normocephalic Respiratory exam: PRESENT: unlabored Pulses: PRESENT: normal dorsalis pedis pul, +2 pedal pulses bilateral Vascular exam: PRESENT: normal capillary refill Additional comments: Patient lying recumbent in hospital bed this morning complaining of pain. Patient notes she is very leery of standing and ambulating with physical therapy laughing when this was suggested by Dr. Cantrell. She is exquisitely tender to palpation very disproportionate to pressure applied when palpated. Her OpSite dressings are clean dry and intact. There is minimal pedal edema and her distal neurovascular exam is intact. Additional comments: Again patient has refused physical therapy. It was discussed that it is imperative the patient work with physical therapy towards ambulation and at least moving from bed to chair at the bedside. It was indicated to the patient that this is of utmost importance as to avoid postoperative complications including pneumonia and bedsores. She voiced understanding of these outcomes. Neurological exam: PRESENT: alert, awake, oriented to person, oriented to place , oriented to time, oriented to situation, CN II-XII grossly intact. ABSENT: motor sensory deficit Psychiatric exam: PRESENT: appropriate affect, normal mood. ABSENT: homicidal ideation, suicidal ideation Skin exam: PRESENT: dry, intact, warm. ABSENT: cyanosis, rash Results Laboratory Results: 08/28/17 06:06 08/29/17 05:21 08/28/17 08/28/17 08/29/17 06:06 06:06 05:21 WBC 8.3 RBC 3.91 Hgb 11.8 L Hct 35.4 L MCV 90 MCH 30.3 MCHC 33.5 RDW 14.8 H Plt Count 281 Sodium 138.0 137.5 Potassium 4.3 4.4 Chloride 104 105 Carbon Dioxide 26 24 Anion Gap 8 9 BUN 18 25 H Creatinine 0.60 0.65 Est GFR ( Amer) > 60 > 60 Est GFR (Non-Af Amer) > 60 > 60 Glucose 132 H 131 H Calcium 8.9 8.7 Magnesium 1.8 1.9 Total Bilirubin 0.6 AST 15 ALT 23 Alkaline Phosphatase 83 Total Protein 5.5 L Albumin 3.1 L Triglycerides 110 Cholesterol 133.10 LDL Cholesterol Direct 76 VLDL Cholesterol 22.0 HDL Cholesterol 36 L 08/24/17 08/24/17 08/24/17 05:39 11:52 17:54 Troponin I 0.941 1.910 1.430 08/25/17 08/25/17 08/26/17 00:13 08:32 05:09 Troponin I 1.050 0.798 0.411 08/27/17 11:12 Troponin I 0.206 Impressions: Cervical Spine CT 08/21/17 14:40 IMPRESSION: CHRONIC DEGENERATIVE CHANGES. NO ACUTE FINDINGS. Head CT 08/21/17 14:40 IMPRESSION: No acute findings. EVIDENCE OF ACUTE STROKE: NO. Chest X-Ray 08/21/17 15:48 IMPRESSION: NO ACUTE RADIOGRAPHIC FINDING IN THE CHEST. NO SIGNIFICANT CHANGE FROM PRIOR STUDY. Fluoroscopy 08/23/17 00:00 IMPRESSION: IMAGE(S) OBTAINED DURING PROCEDURE. Hip X-Ray 08/23/17 00:00 IMPRESSION: IMAGE(S) OBTAINED DURING PROCEDURE. Assessment & Plan - Diagnosis (1) Intertrochanteric fracture of left hip Qualifiers: Encounter type: subsequent encounter Fracture type: closed Fracture alignment: nondisplaced Is this a current diagnosis for this admission?: Yes - Plan Summary Plan Summary: 68-year-old white female 7 days status post IM nail placement for intertrochanteric fracture of left femur. Patient continues to make slow progress with physical therapy and even refused to work with therapy. He was informed that it is imperative that she work with physical therapy to avoid postoperative complications. She voiced understanding of these outcomes and seemed to agree to work with them today. Once she maintains a higher level of function it is of the orthopedic team's opinion that she would likely benefit from being discharged to jail facility. Her dressings remain clean dry and intact and they can be left in place. She can then follow-up with [facility] for surgery Dr. Cantrell and Sameer PLEITEZ 2 weeks postoperatively for reevaluation and staple removal.
[2017-08-29] MEDS ORDERED: BISACODYL 10 MG SUPP.RECT PR PRN (09:58)
[2017-08-29] MEDS ORDERED: SORBITOL 70% SOLUTION 30 ML UDC PO PRN (09:58)
[2017-08-29] MEDS: CHOLECALCIFEROL (D3) 1,000 UNIT TABLET PO SCH (10:15)
[2017-08-29] MEDS: OXYCODONE HCL IR 5 MG TABLET PO PRN (10:15)
[2017-08-29] MEDS: ASPIRIN 325 MG TABLET, ENT COATED PO SCH (10:15)
[2017-08-29] MEDS: FOLIC ACID 1 MG TABLET PO SCH (10:15)
[2017-08-29] MEDS: METOPROLOL TARTRATE 25 MG TABLET PO SCH ×2 (10:16→22:14)
[2017-08-29] MEDS: NITROGLYCERIN 2.5 MG (0.1 MG/HR) PATCH.TD24 TD SCH (10:17)
[2017-08-29] MEDS: POLYETHYLENE GLYCOL 3350 POWDER 17 GM/1 PACKET PO SCH (10:17)
[2017-08-29] MEDS: METOCLOPRAMIDE HCL INJ/PF 10 MG/2 ML SDV IV SCH ×2 (13:30→17:33)
[2017-08-29] MEDS: INSULIN LISPRO 100 UNIT/ML 3 ML VIAL SUBCUT PRN ×2 (13:30→22:17)
--- NOTE | 2017-08-29 16:21 | PDOC PROGRESS REPORT ---
Subjective Progress Note for:: 08/29/17 Subjective:: Patient reports that she is feeling good but had not been able to move her bowels for several days Review of systems All organ systems evaluated and negative except in subjective All laboratories and significant laboratories had been reviewed. Reason For Visit: LEFT HIP FRACTURE,CHRONIC ANTICOAGULATION Physical Exam Vital Signs: Temp Pulse Resp BP Pulse Ox 98.1 F 82 17 130/60 H 94 08/29/17 04:48 08/29/17 04:48 08/29/17 04:48 08/29/17 04:48 08/29/17 04:48 Intake & Output 08/28/17 08/29/17 08/30/17 06:59 06:59 06:59 Intake Total 1486 946 Balance 1486 946 Weight 82.4 kg 81.7 kg General appearance: PRESENT: no acute distress, cooperative, well-developed, well-nourished Head exam: PRESENT: atraumatic, normocephalic Eye exam: PRESENT: conjunctiva pale, EOMI, PERRLA Ear exam: PRESENT: normal external ear exam, TM's normal bilaterally Mouth exam: PRESENT: moist Vascular exam: PRESENT: normal capillary refill GI/Abdominal exam: PRESENT: normal bowel sounds, soft, tenderness Extremities exam: PRESENT: full ROM, joint swelling. ABSENT: clubbing, pedal edema Musculoskeletal exam: PRESENT: ambulatory Neurological exam: PRESENT: alert, altered, awake, oriented to person, oriented to place, oriented to time, oriented to situation, CN II-XII grossly intact Psychiatric exam: PRESENT: appropriate affect, normal mood Skin exam: PRESENT: intact, normal color Results Laboratory Results: 08/28/17 06:06 08/29/17 05:21 08/28/17 08/29/17 06:06 05:21 WBC 8.3 RBC 3.91 Hgb 11.8 L Hct 35.4 L MCV 90 MCH 30.3 MCHC 33.5 RDW 14.8 H Plt Count 281 Sodium 137.5 Potassium 4.4 Chloride 105 Carbon Dioxide 24 Anion Gap 9 BUN 25 H Creatinine 0.65 Est GFR ( Amer) > 60 Est GFR (Non-Af Amer) > 60 Glucose 131 H Calcium 8.7 Magnesium 1.9 Total Bilirubin 0.6 AST 15 ALT 23 Alkaline Phosphatase 83 Total Protein 5.5 L Albumin 3.1 L Triglycerides 110 Cholesterol 133.10 LDL Cholesterol Direct 76 VLDL Cholesterol 22.0 HDL Cholesterol 36 L 08/24/17 08/24/17 08/24/17 05:39 11:52 17:54 Troponin I 0.941 1.910 1.430 08/25/17 08/25/17 08/26/17 00:13 08:32 05:09 Troponin I 1.050 0.798 0.411 08/27/17 11:12 Troponin I 0.206 Impressions: Cervical Spine CT 08/21/17 14:40 IMPRESSION: CHRONIC DEGENERATIVE CHANGES. NO ACUTE FINDINGS. Head CT 08/21/17 14:40 IMPRESSION: No acute findings. EVIDENCE OF ACUTE STROKE: NO. Chest X-Ray 08/21/17 15:48 IMPRESSION: NO ACUTE RADIOGRAPHIC FINDING IN THE CHEST. NO SIGNIFICANT CHANGE FROM PRIOR STUDY. Fluoroscopy 08/23/17 00:00 IMPRESSION: IMAGE(S) OBTAINED DURING PROCEDURE. Hip X-Ray 08/23/17 00:00 IMPRESSION: IMAGE(S) OBTAINED DURING PROCEDURE. Assessment & Plan - Diagnosis (1) Diabetes Qualifiers: Diabetes mellitus type: type 2 Diabetes mellitus complication status: with neurologic complications Diabetes mellitus complication detail: with unspecified neuropathy Diabetes mellitus intermediate accountant insulin use: without skilled nursing use Qualified Code(s): E11.40 - Type 2 diabetes mellitus with diabetic neuropathy, unspecified Is this a current diagnosis for this admission?: Yes Plan: Continue checking glucose before meals and at bedtime and Humalog sliding scale (2) Rheumatoid arthritis Qualifiers: Rheumatoid arthritis location: hand Rheumatoid factor presence: unspecified presence Laterality: bilateral Qualified Code(s): M06.9 - Rheumatoid arthritis, unspecified Is this a current diagnosis for this admission?: Yes Plan: Off methotrexate as it may impair healing. Consider watching for flare of her rheumatoid arthritis. (3) HTN (hypertension) Qualifiers: Hypertension type: essential hypertension Qualified Code(s): I10 - Essential (primary) hypertension Is this a current diagnosis for this admission?: Yes Plan: Improved with pain management (4) Intertrochanteric fracture of left hip Qualifiers: Encounter type: subsequent encounter Fracture type: closed Fracture alignment: nondisplaced Is this a current diagnosis for this admission?: Yes Plan: Oriented surgery well and is participating in physical therapy. Anticipate to discharge to rehab in a.m. (5) Immunosuppressed status Is this a current diagnosis for this admission?: Yes Plan: Patient getting methotrexate chronically for rheumatoid arthritis rendering patient immunosuppressant at high risk for infection and poor healing (6) NSTEMI (non-ST elevated myocardial infarction) Is this a current diagnosis for this admission?: Yes Plan: Dr. Wang reported a negative stress test. Accordingly the heart attack may have been small enough to not be able to be detected during the stress test - Time Time Spent with patient: 15-24 minutes Medications reviewed and adjusted accordingly: Yes Anticipated discharge: Acute Rehab Within: within 24 hours - Inpatient Certification Based on my medical assessment, after consideration of the patient's comorbidities, presenting symptoms, or acuity I expect that the services needed warrant INPATIENT care.: Yes I certify that my determination is in accordance with my understanding of Medicare's requirements for reasonable and necessary INPATIENT services [42 CFR 412.3e].: Yes Medical Necessity: Significant Comorbidiites Make Outpatient Treatment Too Risky
[2017-08-29 17:39] LABS: APPEARANCE,URINE SLIGHTLY-CLOUDY; BILIRUBIN,URINE NEGATIVE (NEGATIVE); COLOR,URINE YELLOW; GLUCOSE, URINE NEGATIVE (NEGATIVE); KETONES,URINE NEGATIVE (NEGATIVE); LEUKOCYTE ESTERASE,URINE LARGE (NEGATIVE); NITRITE,URINE NEGATIVE (NEGATIVE); PROTEIN,URINE NEGATIVE (NEGATIVE); URINE SPECIFIC GRAVITY 1.009
[2017-08-29] MEDS: SIMVASTATIN 10 MG TABLET PO SCH (22:13)
[2017-08-29] MEDS: BISACODYL 5 MG TABEC PO SCH (22:14)
[2017-08-30] MEDS: METOCLOPRAMIDE HCL INJ/PF 10 MG/2 ML SDV IV SCH ×4 (01:51→17:37)
[2017-08-30] MEDS ORDERED: NA PHOS,M-B/NA PHOS,DI-BA (ADULT) 133 ML ENEMA PR ONE (04:00)
--- NOTE | 2017-08-30 07:07 | PDOC PROGRESS REPORT ---
Subjective Progress Note for:: 08/30/17 Subjective:: 76-year-old white female status post I am nail placement for intertrochanteric fracture of left femur. Patient lying recumbent in hospital bed this morning complaining of pain. She notes tenderness to palpation when examining her OpSite dressings. Reason For Visit: LEFT HIP FRACTURE,CHRONIC ANTICOAGULATION Physical Exam Vital Signs: Temp Pulse Resp BP Pulse Ox 36.4 C 83 16 161/46 H 96 08/29/17 22:51 08/30/17 02:00 08/29/17 22:51 08/29/17 22:51 08/29/17 22:51 Intake & Output 08/29/17 08/30/17 08/31/17 06:59 06:59 06:59 Intake Total 946 1080 Balance 946 1080 Weight 81.7 kg 79.7 kg Physical Exam: Physical exam is grossly unchanged from previous exam performed on 08/29/2017. General appearance: PRESENT: no acute distress, well-developed, well-nourished Head exam: PRESENT: atraumatic, normocephalic Respiratory exam: PRESENT: unlabored Pulses: PRESENT: normal dorsalis pedis pul, +2 pedal pulses bilateral Vascular exam: PRESENT: normal capillary refill Extremities exam: PRESENT: tenderness Additional comments: Patient makes very slow progress with physical therapy only ambulating 1 step Neurological exam: PRESENT: alert, awake, oriented to person, oriented to place , oriented to time, oriented to situation, CN II-XII grossly intact. ABSENT: motor sensory deficit Psychiatric exam: PRESENT: appropriate affect, normal mood. ABSENT: homicidal ideation, suicidal ideation Skin exam: PRESENT: dry, intact, warm. ABSENT: cyanosis, rash Results Laboratory Results: 08/28/17 06:06 08/29/17 05:21 08/29/17 17:20 Urine Color YELLOW Urine Appearance SLIGHTLY-CLOUDY Urine pH 5.0 Ur Specific Cougar 1.009 Urine Protein NEGATIVE Urine Glucose (UA) NEGATIVE Urine Ketones NEGATIVE Urine Blood LARGE H Urine Nitrite NEGATIVE Ur Leukocyte Esterase LARGE H Urine WBC (Auto) 12 Urine RBC (Auto) 1 08/24/17 08/24/17 08/24/17 05:39 11:52 17:54 Troponin I 0.941 1.910 1.430 01/19/18 01/19/18 01/20/18 00:13 08:32 05:09 Troponin I 1.050 0.798 0.411 08/27/17 11:12 Troponin I 0.206 Impressions: Cervical Spine CT 08/21/17 14:40 IMPRESSION: CHRONIC DEGENERATIVE CHANGES. NO ACUTE FINDINGS. Head CT 08/21/17 14:40 IMPRESSION: No acute findings. EVIDENCE OF ACUTE STROKE: NO. Chest X-Ray 08/21/17 15:48 IMPRESSION: NO ACUTE RADIOGRAPHIC FINDING IN THE CHEST. NO SIGNIFICANT CHANGE FROM PRIOR STUDY. Fluoroscopy 08/23/17 00:00 IMPRESSION: IMAGE(S) OBTAINED DURING PROCEDURE. Hip X-Ray 08/23/17 00:00 IMPRESSION: IMAGE(S) OBTAINED DURING PROCEDURE. Assessment & Plan - Diagnosis (1) Intertrochanteric fracture of left hip Qualifiers: Encounter type: subsequent encounter Fracture type: closed Fracture alignment: nondisplaced Is this a current diagnosis for this admission?: Yes - Plan Summary Plan Summary: 76-year-old white female status post open reduction internal fixation for left intertrochanteric fracture. Patient continues to make very slow progress with physical therapy as she is only ambulated 1 step. Consequences of being immobile postoperatively have been discussed with patient and she voiced understanding as of possible outcomes including pneumonia and bedsores. It has been discussed the patient will likely be transferred to a jail facility on discharge. At this time the orthopedic team is in agreement with this discharge plan I would agree that she would benefit from jail facility and aggressive physical therapy treatment there. She can be discharged to the jail facility when hospitalist deem appropriate.
[2017-08-30] MEDS: OXYCODONE HCL IR 5 MG TABLET PO PRN (08:06)
[2017-08-30] MEDS: CHOLECALCIFEROL (D3) 1,000 UNIT TABLET PO SCH (09:13)
[2017-08-30] MEDS: ASPIRIN 325 MG TABLET, ENT COATED PO SCH (09:13)
[2017-08-30] MEDS: METOPROLOL TARTRATE 25 MG TABLET PO SCH (09:13)
[2017-08-30] MEDS: FOLIC ACID 1 MG TABLET PO SCH (09:13)
[2017-08-30] MEDS: POLYETHYLENE GLYCOL 3350 POWDER 17 GM/1 PACKET PO SCH (09:14)
[2017-08-30] MEDS: NITROGLYCERIN 2.5 MG (0.1 MG/HR) PATCH.TD24 TD SCH (09:14)
--- NOTE | 2017-08-30 12:22 | PDOC DISCHARGE SUMMARY ---
General - Admit/Disc Date/PCP Admission Date/Primary Care Provider: 08/21/17 17:54 Discharge Date: 08/30/17 - Discharge Diagnosis (1) NSTEMI (non-ST elevated myocardial infarction) Is this a current diagnosis for this admission?: Yes (2) Intertrochanteric fracture of left hip Is this a current diagnosis for this admission?: Yes (3) Diabetes Is this a current diagnosis for this admission?: Yes (4) Rheumatoid arthritis Is this a current diagnosis for this admission?: Yes (5) HTN (hypertension) Is this a current diagnosis for this admission?: Yes (6) Immunosuppressed status Is this a current diagnosis for this admission?: Yes - Additional Information Resuscitation Status: Full Code Discharge Diet: Diabetic Discharge Activity: Activity As Tolerated Prescriptions: Aspirin [Adult Low Dose Aspirin EC] 81 mg PO DAILY #7 tablet. Oxycodone HCl [Oxy-Ir 5 mg Tablet] 5 mg PO Q6HP PRN #7 tablet PRN Reason: Home Medications: Cholecalciferol (Vitamin D3) [Vitamin D3 1000 Unit Tablet] 1,000 unit PO DAILY 08/22/17 Folic Acid [Folvite 1 mg Tablet] 1 mg PO DAILY 08/22/17 Metformin HCl [Metformin HCl ER] 750 mg PO DAILY 08/22/17 Simvastatin 20 mg PO QHS 08/22/17 Aspirin [Adult Low Dose Aspirin EC] 81 mg PO DAILY #7 tablet. 08/30/17 Metoprolol Tartrate [Lopressor 25 mg Tablet] 25 mg PO Q12 tablet 08/30/17 Oxycodone HCl [Oxy-Ir 5 mg Tablet] 5 mg PO Q6HP PRN #7 tablet 08/30/17 Polyethylene Glycol 3350 [Miralax Powder 17 gm/Packet] 17 gm PO DAILY powd.pack 08/30/17 History of Present Illness History of Present Illness: WENDI ESCOBAR is a 76 year old female arrived to ED via rescue squad complaining of left hip pain. Patient states that she was in her kitchen when she fell. She deniesd any loss of consciousness, weakness or dizziness. She suffers from rheumatoid arthritis and takes methotrexate on a regular basis. Patient denies history of stroke or being on any anticoagulants. She reported history of diabetes. On evaluation in emergency room x-ray was significant for a left intertrochanteric femoral neck fracture. ED physician contacted Dr. Deal who recommended to contact the hospitalist service for admission. Hospital Course Hospital Course: Patient underwent ORIF of the left hip on 0 117 and she tolerated procedure well. Cardiology had seen patient for pre-op evaluation and ordered postoperative cardiac enzymes which turned out to be positive. Patient had a nuclear stress test which turned out to be positive. It was Dr. Wang's impression that patient sustained a non-STEMI. Accordingly the thought was that probably the heart attack was too small to be detected on the nuclear stress test. Patient had been able to participate in physical therapy. Patient suffers from rheumatoid arthritis and has been getting methotrexate as outpatient. We opted to discontinue this medication since it delays healing and make her immunosuppressed. Recommend to restart methotrexate within 4 weeks after discharge. As far as DVT prophylaxis recommend Xarelto 10 mg p.o. daily. Since patient had achieved maximum benefit of hospitalization stay prompted to discharge under stable condition Physical Exam Vital Signs: Temp Pulse Resp BP Pulse Ox 97.8 F 81 18 130/48 H 96 08/30/17 11:20 08/30/17 11:20 08/30/17 11:20 08/30/17 11:20 08/30/17 11:20 Intake & Output 08/29/17 08/30/17 08/31/17 06:59 06:59 06:59 Intake Total 946 1080 Balance 946 1080 Weight 81.7 kg 79.7 kg General appearance: PRESENT: no acute distress, cooperative, well-developed, well-nourished Head exam: PRESENT: atraumatic, normocephalic Eye exam: PRESENT: EOMI, nystagmus, PERRLA Mouth exam: PRESENT: moist, neck supple Neck exam: PRESENT: full ROM. ABSENT: JVD, lymphadenopathy Respiratory exam: PRESENT: clear to auscultation gertrudis Cardiovascular exam: PRESENT: RRR. ABSENT: diastolic murmur, systolic murmur Vascular exam: PRESENT: normal capillary refill GI/Abdominal exam: PRESENT: normal bowel sounds, soft. ABSENT: tenderness Extremities exam: PRESENT: clubbing. ABSENT: full ROM, joint swelling, pedal edema Musculoskeletal exam: PRESENT: ambulatory Neurological exam: PRESENT: alert, oriented to person, oriented to place, oriented to time, oriented to situation, CN II-XII grossly intact Psychiatric exam: PRESENT: appropriate affect, normal mood Skin exam: PRESENT: intact, normal color Results Laboratory Results: 08/28/17 06:06 08/29/17 05:21 08/29/17 17:20 Urine Color YELLOW Urine Appearance SLIGHTLY-CLOUDY Urine pH 5.0 Ur Specific [place] 1.009 Urine Protein NEGATIVE Urine Glucose (UA) NEGATIVE Urine Ketones NEGATIVE Urine Blood LARGE H Urine Nitrite NEGATIVE Ur Leukocyte Esterase LARGE H Urine WBC (Auto) 12 Urine RBC (Auto) 1 08/24/17 08/24/17 08/24/17 05:39 11:52 17:54 Troponin I 0.941 1.910 1.430 08/25/17 08/25/17 08/26/17 00:13 08:32 05:09 Troponin I 1.050 0.798 0.411 08/27/17 11:12 Troponin I 0.206 Impressions: Cervical Spine CT 08/21/17 14:40 IMPRESSION: CHRONIC DEGENERATIVE CHANGES. NO ACUTE FINDINGS. Head CT 08/21/17 14:40 IMPRESSION: No acute findings. EVIDENCE OF ACUTE STROKE: NO. Chest X-Ray 08/21/17 15:48 IMPRESSION: NO ACUTE RADIOGRAPHIC FINDING IN THE CHEST. NO SIGNIFICANT CHANGE FROM PRIOR STUDY. Fluoroscopy 08/23/17 00:00 IMPRESSION: IMAGE(S) OBTAINED DURING PROCEDURE. Hip X-Ray 08/23/17 00:00 IMPRESSION: IMAGE(S) OBTAINED DURING PROCEDURE. Plan Discharge Plan: To SNF Time Spent: Less than 30 Minutes
[2017-08-30] MEDS ORDERED: INFLUENZA ADLT QUAD (36MOS+) 2017-18 VAC 0.5 ML SYR IM PRN (19:47)
[2017-08-30 20:41] VITALS: BP 130/48
== END 2017-08-30 19:45 | DRG 480 ==
LOC: ER 14:15 → EH 17:54 → 4S 08-22 12:30
PROVIDERS: ADMIT Family Medicine; ATTEND Family Medicine
PROC: 0QS706Z Reposition Left Upper Femur with Intramedullary Internal Fixation Device, Open Approach (ICD-10-PCS; principal; 2017-08-23 15:30)
PROC: 3E0234Z Introduction of Serum, Toxoid and Vaccine into Muscle, Percutaneous Approach (ICD-10-PCS; 2017-08-30)
DX: S72.142A Displaced intertrochanteric fracture of left femur, initial encounter for closed fracture (principal); I21.4 Non-ST elevation (NSTEMI) myocardial infarction; W01.0XXA Fall on same level from slipping, tripping and stumbling without subsequent striking against object, initial encounter; Y92.000 Kitchen of unspecified non-institutional (private) residence as the place of occurrence of the external cause; I10 Essential (primary) hypertension; M06.9 Rheumatoid arthritis, unspecified; E11.40 Type 2 diabetes mellitus with diabetic neuropathy, unspecified; E78.5 Hyperlipidemia, unspecified; R74.8 Abnormal levels of other serum enzymes; F32.9 Major depressive disorder, single episode, unspecified; D50.9 Iron deficiency anemia, unspecified; Z96.651 Presence of right artificial knee joint; Z79.899 Other long term (current) drug therapy; Z79.84 Long term (current) use of oral hypoglycemic drugs; Z92.25 Personal history of immunosuppression therapy; Z23 Encounter for immunization
CPT/HCPCS: 01230; 36415; 70450; 71045; 72125; 78452; 80048; 80053; 80061; 80076; 81001; 82962; 83735; 84484; 85025; 85027; 85610; 85730; 87086; 90686; 93005; 93010; 93017; 93306; 96374; 99285; A9500; G8978-GP; G8979-GP; J0690; J1100; J1815; J2250; J2270; J2405; J2704; J2765; J2785; J3010; J3490; J7030; Q9969